=== PATIENT | male | born 1950 | race Caucasian/White ===

== ENCOUNTER 2025-09-02 17:11 | Inpatient (IN) | payer MEDICARE, OTHER, SELFPAY ==
--- NOTE | ~2025-09-02 | CT_ITS ---
EXAMINATION: CT brain wo dari, 09/02/2025 19:26 SPEECH THERAPY DIRECTOR HISTORY: AMS COMPARISON: No comparisons available. Technique: Axial images obtained of the brain without contrast. One or more of the following dose reduction techniques were used: automated exposure control, adjustment of the mA and/or kV according to patient size, use of iterative reconstruction technique. Findings: There are remote bilateral basal ganglia lacunar infarcts. No acute infarct or hemorrhage. Nonspecific deviation noted of the intraventricular septum towards the right, there is no midline shift however appreciated. No extra-axial fluid collections. Mastoid air cells unremarkable. Sinuses and orbits unremarkable. No acute fracture. No significant facial or scalp soft tissue swelling evident. No radiopaque foreign body is seen. Impression: 1.No acute intracranial abnormality. Reviewed, dictated and finalized at location P. CH THERAPY DIRECTOR Impression: 1.No acute intracranial abnormality.
--- NOTE | ~2025-09-02 | CT_ITS ---
EXAMINATION: CTA BRAIN/CAROTID DATE: 09/04/2025 09:34 INDICATION: Altered mental status TECHNIQUE: Computed tomographic angiography (CTA) of the head and neck was performed with 100 mL Omnipaque-350 intravenous contrast. Multiplanar reconstructions and maximum intensity projection 3D-reconstructions of the carotid arteries and of the intracranial arteries were created by the technologist on a separate workstation. Precontrast CT of the head was also obtained. Automated exposure control and iterative reconstruction technique were employed.The dose-length product was 1883.27 mGy-cm. COMPARISON: Head CT dated 09/02/2025 FINDINGS: Head: Old lacunar infarcts at the right thalamus and the bilateral basal ganglia. No acute intracranial hemorrhage, acute infarction or abnormal extra axial fluid collection. There is additional mild to moderate scattered white matter hypoattenuation consistent with chronic small vessel ischemic disease. There is asymmetric mild enlargement of the left lateral ventricle with no change in 9 mm left to right midline shift at the ventricular septum. No abnormal masses or obstructing lesions identified in the region of the foramen of [place]. There is however symmetric prominence of the sulci likely related to age-appropriate diffuse cerebral volume loss. No mass/mass effect. No abnormally enhancing lesions on the postcontrast imaging. Mucosal thickening in the inferior right maxillary sinus. The orbits and mastoid air cells are normal. Intracranial arteries Left vertebral artery is dominant. There is a mild, <50% stenosis of the proximal basilar artery. There is also small amount of atherosclerotic plaque without hemodynamically significant stenosis at the bilateral carotid siphons. Both A1 and P1 segments are patent. There is a moderate, 60-70 % stenosis of the left P1 segment. There is no other hemodynamically significant stenosis in the vertebral, basilar and internal carotid arteries. There are no aneurysms identified. Cerebral arterial arborization appears symmetric. Carotid arteries: The aortic arch and the great vessels arising from the arch are otherwise unremarkable with ectatic ascending thoracic aorta measuring up to 4.2 cm. no dissection or hemodynamically significant stenosis. There is small amount of atherosclerotic plaque with 0% stenosis of the right and left carotid bulbs relative to normal distal artery lumen diameter (NASCET criteria). The left vertebral artery is dominant with diminutive right vertebral artery beginning at its origin. Small right pleural effusion. Mild emphysema with groundglass opacities in the visualized upper lungs most likely due to expiratory phase of imaging and atelectasis with differential including likely mild pulmonary edema or pneumonia..Mild cervical and upper thoracic spondylosis. IMPRESSION: 1. Small amount of atherosclerotic plaque with 0% stenosis of the right and left carotid bulb relative to normal distal artery lumen diameter (NASCET criteria). 2. Moderate 60-70% stenosis at the left P1 segment. No other hemodynamically significant stenosis, thrombosis or aneurysm. 3. 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 4. Unchanged mild asymmetric enlargement of the left lateral ventricle resulting in a 9 mm midline shift at the ventricular septum. There is however no asymmetric effacement of the left-sided sulci or evident obstructing lesion in the region of the foramen of [place] to suggest hydronephrosis. Correlation with any prior outside imaging would be helpful to establish chronicity. No other acute intracranial process. 5. Age-related changes including mild diffuse volume loss and mild to moderate scattered white matter hypoattenuation consistent with chronic small vessel ischemic disease. 6. Mild emphysema with ground glass opacities in the visualized upper lungs most likely atelectasis due to expiratory phase of imaging with differential including less likely mild pulmonary edema or pneumonia. 7. Small right pleural effusion. 8. 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 Reviewed, dictated and finalized at location A. FING CONSULTANT IMPRESSION: 1. Small amount of atherosclerotic plaque with 0% stenosis of the right and lef t carotid bulb relative to normal distal artery lumen diameter (NASCET criteria ). 2. Moderate 60-70% stenosis at the left P1 segment. No other hemodynamically si gnificant stenosis, thrombosis or aneurysm. 3. Small old lacunar infarcts at the right thalamus and bilateral basal ganglia . 4. Unchanged mild asymmetric enlargement of the left lateral ventricle resultin g in a 9 mm midline shift at the ventricular septum. There is however no asymme tric effacement of the left-sided sulci or evident obstructing lesion in the re gion of the foramen of [place] to suggest hydronephrosis. Correlation with any p rior outside imaging would be helpful to establish chronicity. No other acute i ntracranial process. 5. Age-related changes including mild diffuse volume loss and mild to moderate scattered white matter hypoattenuation consistent with chronic small vessel isc hemic disease. 6. Mild emphysema with ground glass opacities in the visualized upper lungs mos t likely atelectasis due to expiratory phase of imaging with differential inclu ding less likely mild pulmonary edema or pneumonia. 7. Small right pleural effusion. 8. 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
--- NOTE | ~2025-09-02 | CT_ITS ---
EXAMINATION: CT chest abdomen pelvis w con DATE: 09/02/2025 20:09 INDICATION: Pneumonia. Altered mental status. TECHNIQUE: Computed tomography (CT) of the chest, abdomen, and pelvis was performed with 100 mL Omnipaque 350 intravenous contrast. Automated exposure control and iterative reconstruction technique were employed. The dose-length product was 1783.59 mGy-cm. COMPARISON: None FINDINGS: CHEST CT: There is a small right pleural effusion with pleural thickening. There is mild atelectasis in the lungs including peripheral rounded atelectasis in right middle lobe and right lower lobe. Calcified right lung nodules and calcified right hilar and mediastinal lymph nodes are consistent with old granulomatous disease. The heart size is normal. No pericardial effusion. There is a left chest wall pacer with leads in the right atrium and right ventricle. There are bridging endplate osteophytes at multiple levels in the spine, consistent with diffuse idiopathic skeletal hyperostosis (DISH). ABDOMEN/PELVIS CT: The liver is normal. Calcifications in the spleen are consistent with old granulomatous disease. There are changes of cholecystectomy. The pancreas and adrenal glands are normal. There is cortical thinning in the kidneys. There are cysts in the kidneys measuring up to 8.1 cm on the right. There are 4 stones in right kidney measuring up to 7 mm. There is a 2 mm stone in left kidney. There are bilateral inguinal hernias containing fat. The prostate is mildly enlarged. There is diverticulosis of the colon without evidence of diverticulitis. The appendix is normal. There are no dilated loops of bowel. There are penetrating atherosclerotic ulcers of infrarenal aorta. There is mild lumbar spondylosis. IMPRESSION: 1. Small right pleural effusion with pleural thickening, likely an exudate. 2. Peripheral airspace opacities in right middle lobe and right lower lobe, consistent with rounded atelectasis. 3. Bilateral inguinal hernias containing fat. Reviewed, dictated and finalized at location E. MACHINE OPERATOR IMPRESSION: 1. Small right pleural effusion with pleural thickening, likely an exudate. 2. Peripheral airspace opacities in right middle lobe and right lower lobe, con sistent with rounded atelectasis. 3. Bilateral inguinal hernias containing fat.
--- NOTE | ~2025-09-02 | XR_ITS ---
EXAMINATION: XR chest 1V, 09/02/2025 19:35 AUTOMATIC PAINT SPRAYER OPERATOR HISTORY: AMS COMPARISON: No comparisons available. Technique: Single view. Findings: Mild pulmonary venous congestion. Small right basilar infiltrate and effusion. No pneumothorax. Mild cardiomegaly. Mediastinal and hilar contours are within normal limits. Bony thorax no acute abnormality. Left pacemaker. Impression: CHF. Superimposed probable right lower lobe pneumonia Reviewed, dictated and finalized at location P. MATIC PAINT SPRAYER OPERATOR Impression: CHF. Superimposed probable right lower lobe pneumonia
[2025-09-02 17:08] VITALS: BP 193/93; PULSE 88; RESP 16; TEMP 36.5; O2SAT 96
--- NOTE | 2025-09-02 17:18 | ECG_ITS ---
Test Date: 2025-09-02 17:27:07 Measurements Intervals [place] Rate: 86 P: 39 KS: 206 QRS: 27 QRSD: 109 T: 78 QT: 371 QTc: 445 Interpretive Statements SINUS RHYTHM INFERIOR MYOCARDIAL INFARCTION , PROBABLY OLD Electronically Signed On 09-03-2025 09:56:13 PRINTING SERVICES COORDINATOR by Usama Bear D.O
[2025-09-02 17:19] VITALS: PULSE 89; O2SAT 95
[2025-09-02 17:40] LABS: Hematocrit 47.0 % (42.0-52.0); Hemoglobin 15.7 g/dL (14.0-18.0); Immature Granulocyte Percent A 0.5 % (0-0.5); Lymphocytes Absolute Auto 1.81 K/mm3 (0.9-3.2); Mean Corpuscular HGB Conc 33.4 g/dl (32-36); Mean Corpuscular Hemoglobin 28.5 pg (26-34); Mean Corpuscular Volume 85.5 fl (80-100); Nucleated Red Blood Cells Absolute Auto 0.000 K/mm3 (0.0-0.012); Nucleated Red Blood Cells Perc 0.0 % (0.0-0.2); Platelet Count Result 241 k/mm3 (150-375); Red Blood Count 5.50 M/mm3 (4.6-6.20); White Blood Count 12.8 K/mm3 (4.5-10.0)
[2025-09-02 17:45] LABS: Alanine Aminotransferase 17 U/L (6-50); Albumin Level 3.9 g/dL (3.5-5.1); Alkaline Phosphatase 122 U/L (38-126); Anion Gap 10 mmol/L (4-12); Aspartate Amino Transferase 26 U/L (17-59); Bilirubin,Total 0.8 mg/dL (0.2-1.3); Blood Urea Nitrogen 19 mg/dL (9-20); Calcium 8.8 mg/dL (8.4-10.2); Carbon Dioxide 23 mmol/L (22-30); Chloride 106 mmol/L (98-107); Estimated CRCL calculation 59 ml/min; Estimated Glomerular Filt Rate 56; Glucose 133 mg/dL (65-110); Potassium 3.2 mmol/L (3.4-5.0); Sodium 139 mmol/L (137-145); Total Protein 7.5 g/dL (6.3-8.2)
[2025-09-02 18:10] LABS: INR 1.1; Prothrombin Time 14.3 Seconds (11.1-14.7)
[2025-09-02 18:12] LABS: Partial Thromboplastin Time 28.4 Seconds (22.3-36.8)
[2025-09-02 18:35] VITALS: BP 176/98; PULSE 79; RESP 13; O2SAT 96
[2025-09-02 19:05] LABS: Add Urine Microscopic? YES; Appearance Urine Clear (Clear); Glucose Urine UA Negative (Negative); Leukocyte Esterase Ur Negative LEU/UL (Negative); Need Manual Microscopic Reviewed; Nitrate Urine Negative (Negative); Specific Grav Ur 1.025 (1.001-1.035)
[2025-09-02 19:26] LABS: Lipase 24 U/L (23-300); Magnesium 1.9 mg/dL (1.6-2.3)
[2025-09-02 19:29] LABS: Acetaminophen < 10 ug/mL (10-30); Salicylate < 1.0 mg/dL (2-20)
[2025-09-02 19:35] LABS: NT Pro B Type Natriuretic Pept 4400 pg/mL (19.9-100)
[2025-09-02] MEDS: SODIUM CHLORIDE 0.9% IV 1,000 ML 999 ML IV CONT (19:43)
[2025-09-02 19:50] LABS: Fractional Inspired Oxygen 21 %; HCO3 VBG 27.9 mEq/l (24.0-30.0); PCO2 VBG 40.3 mmHg (42.0-48.0); PO2 VBG 33.3 mmHg (35.0-45.0)
[2025-09-02 19:52] LABS: pH VBG 7.458 (7.300-7.400)
[2025-09-02 19:59] LABS: Thyroid Stimulating Hormone Reflex 0.543 uIU/mL (0.465-4.68)
[2025-09-02 20:19] LABS: Cannabinoid Screen Urine Negative (Negative)
[2025-09-02 20:33] LABS: Influenza A QL RT-PCR Negative (Negative); Influenza B QL RT-PCR Negative (Negative); RSV RNA, RT-PCR Negative (Negative); SARS-CoV-2 RNA PCR Negative (Negative)
--- NOTE | 2025-09-02 20:33 | ED_ITS ---
HPI - General Adult General Chief complaint: Altered Mental Status Stated complaint: Altered Mental Status Time Seen by Provider: 09/02/25 18:41 History of Present Illness HPI narrative: This is a 75-year-old male presenting ED for altered mental status. Patient was found wandering around the parking lot of a [employer]. The ambulance was called he was brought to the hospital for evaluation. At this time patient is A&O times 1-2 and does not know the year. He does not know what he was doing in the [facility] parking lot. He is denying any complaints such as fevers chills chest pain difficulty breathing abdominal pain nausea vomiting diarrhea or lower extremity edema. He denies use of drugs or alcohol. [facility] We attempted to reach family but could not find anyone. Reached out to the [facility] and it appears that it had an admission there for similar complaints several weeks ago. Related Data Allergies Allergy/AdvReac Type Severity Reaction Status Date / Time diazepam Allergy Mild Unknown Verified 09/02/25 20:09 lisinopril Allergy Mild Cough Verified 09/02/25 20:09 metoprolol Allergy Mild Unknown Verified 09/02/25 20:09 simvastatin Allergy Mild Unknown Verified 09/02/25 20:09 sulfamethoxazole (From Allergy Mild Unknown Verified 09/02/25 20:09 Bactrim) trimethoprim (From Bactrim) Allergy Mild Unknown Verified 09/02/25 20:09 NSAIDS (Non-Steroidal Allergy Unknown Verified 09/02/25 20:09 Anti-Inflamma PMFSH Past Medical History Medical History Coronary artery disease Abdominal aortic aneurysm Diabetes Afib Dementia Depression Hypertension Exam 2 Narrative: APPEARANCE: No apparent distress. Disheveled, smells of urine, A&O times 1-2 Head: atraumatic. EYES: EOMI, NOSE: Atraumatic NECK: Trachea midline RESPIRATORY: No increased rate of breathing, no oxygen requirements is bibasilar crackles CARDIOVASCULAR: RRR, mild +1 edema lower extremities ABDOMINAL: Non-distended, soft nontender MUSCULOSKELETAl: No obvious deformities NEURO: Alert. Moving 4/4 extremities SKIN:: Warm, dry. Normal color PSYCHIATRIC: Normal affect Course Vital Signs Vital signs: Vital Signs Temperature 97.7 F 09/02/25 17:08 Pulse Rate 88 09/02/25 17:08 Respiratory Rate 16 11/15/25 17:08 Blood Pressure 193/93 H 09/02/25 17:08 Pulse Oximetry 96 09/02/25 17:08 Oxygen Delivery Room Air 09/02/25 17:08 Temperature 97.7 F 09/02/25 17:08 Pulse Rate 79 09/02/25 18:35 Respiratory Rate 13 09/02/25 18:35 Blood Pressure 176/98 H 09/02/25 18:35 Pulse Oximetry 96 09/02/25 18:35 Oxygen Delivery Room Air 09/02/25 17:19 Medical Decision Making MDM Narrative Medical decision making narrative: -Course: 75-year-old male presenting ED for altered mental status. On arrival patient is disheveled, smells of urine is A&O x1.Patient cannot provide me any relevant information to guide a workup. We reached out to family and were not able to get any information. We reached out to [facility] and they sent us his recent admission which was several weeks ago for a similar presentation for confusion. CT brain C-spine chest abdomen pelvis and laboratory workup has been ordered. Patient given 1 L fluids. Labs and imaging reviewed. Significant findings include: CT brain and C-spine negative for acute findings. CT chest abdomen pelvis as interpretted by stat rad: in the right lung there is a small right pleural effusion with questionable minimal thickening of the pleura raising suspicion for possible early empyema. No loculations noted. Masslike consolidation right middle lobe mild swelling and adjacent vessels could represent round atelectasis versus infiltrates. There is also a consolidation right lower lobe with obliteration of the limited associated bronchitis which could represent pneumonia and/or aspiration. Or also filling defects in the bronchi which represent mucus plugs or aspiration. CT and pelvis did not reveal any causative findings. Lab work significant for a white count 12.8. BNP mildly elevated at 4400. Otherwise laboratory studies within normal limits. Urine drug screen, and alcohol negative. COVID and flu were negative. Kidney function at baseline. Patient has been started broad-spectrum antibiotics to cover pneumonia/ aspiration. [facility] was contacted for possible transfer They are at capacity and not accepting outside transfers at this time. Patient does not appear to be able to live safely his own and should definitely not be driving a car. Patient will be admitted hospital further management possible pneumonia and discharge planning. -DDX includes but is not limited to: sepsis pneumonia UTI drug use alcohol use dementia delirium Vital Signs Vital Signs: Vital Signs Temperature 97.7 F 09/02/25 17:08 Pulse Rate 88 09/02/25 17:08 Respiratory Rate 16 09/02/25 17:08 Blood Pressure 193/93 H 09/02/25 17:08 Pulse Oximetry 96 09/02/25 17:08 Oxygen Delivery Room Air 09/02/25 17:08 Temperature 97.7 F 09/02/25 17:08 Pulse Rate 79 09/02/25 18:35 Respiratory Rate 13 09/02/25 18:35 Blood Pressure 176/98 H 09/02/25 18:35 Pulse Oximetry 96 09/02/25 18:35 Oxygen Delivery Room Air 09/02/25 17:19 Lab Data 09/02/25 17:27 09/02/25 17:27 Labs: Lab Results 09/02/25 09/02/25 09/02/25 Range/Units 17:17 17:27 18:30 WBC 12.8 H (4.5-10.0) K/mm3 RBC 5.50 (4.6-6.20) M/mm3 Hgb 15.7 (14.0-18.0) g/dL Hct 47.0 (42.0-52.0) % MCV 85.5 (80-100) fl MCH 28.5 (26-34) pg MCHC 33.4 (32-36) g/dl RDW 13.9 (11.5-14.5) % Plt Count 241 (150-375) k/mm3 MPV 11.1 H (7.4-10.4) fl Immature Gran % (Auto) 0.5 (0-0.5) % Neut % (Auto) 77.8 H (45.5-73.1) % Lymph % (Auto) 14.2 L (18.3-44.2) % Grand % (Auto) 6.0 (2.6-8.5) % Eos % (Auto) 1.0 (0-4.4) % Baso % (Auto) 0.5 (0.2-1.2) % Lymph # (Auto) 1.81 (0.9-3.2) K/mm3 Grand # (Auto) 0.8 H (0.1-0.6) K/mm3 Eos # (Auto) 0.1 (0-0.3) K/mm3 Baso # (Auto) 0.1 (0.0-0.1) K/mm3 Abs Immat Gran (auto) 0.07 H (0.00-0.031) K/mm3 Absolute Neuts (auto) 9.9 H (1.3-6.7) K/mm3 Absolute Nucleated RBC 0.000 (0.0-0.012) K/mm3 Nucleated RBC % 0.0 (0.0-0.2) % PT 14.3 (11.1-14.7) Seconds INR 1.1 APTT 28.4 (22.3-36.8) Seconds Sodium 139 (137-145) mmol/L Potassium 3.2 L (3.4-5.0) mmol/L Chloride 106 (98-107) mmol/L Carbon Dioxide 23 (22-30) mmol/L Anion Gap 10 (4-12) mmol/L BUN 19 (9-20) mg/dL Creatinine 1.26 (0.7-1.3) mg/dL Estim Creat Clear Calc 59 ml/min Estimated GFR 56 L (59 - ) Glucose 133 H (65-110) mg/dL POC Capillary Glucose 142 H (65-105) mg/dl Lactic Acid (0.7-2.0) mmol/L Calcium 8.8 (8.4-10.2) mg/dL Magnesium 1.9 (1.6-2.3) mg/dL Total Bilirubin 0.8 (0.2-1.3) mg/dL AST 26 (17-59) U/L ALT 17 (6-50) U/L Alkaline Phosphatase 122 (38-126) U/L NT-Pro-B Natriuret Pep 4400 H (19.9-100) pg/mL Total Protein 7.5 (6.3-8.2) g/dL Albumin 3.9 (3.5-5.1) g/dL Lipase 24 (23-300) U/L TSH (Reflex) 0.543 (0.465-4.68) uIU/mL Urine Color Yellow (Yellow) Urine Appearance Clear (Clear) Urine pH 5.5 (5.0-9.0) Ur Specific [place] 1.025 (1.001-1.035) Urine Protein 3+ H (Negative) mg/dL Urine Glucose (UA) Negative (Negative) mg/dL Urine Ketones 2+ H (Negative) mg/dL Ur Blood (Man) Negative (Negative) Urine Nitrate Negative (Negative) Urine Bilirubin Negative (Negative) Urine Urobilinogen 1.0 (<2.0) mg/dL Add Ur Microanalysis Reviewed Leukocyte Esterase Rfl Negative (Negative) MARCIAL/UL Urine RBC 0-2 (0-2) /hpf Urine WBC 0-5 (0-3) /hpf Ur Squamous Epith Cells None seen (Few) /hpf Urine Bacteria None seen /hpf Urine Casts 6-10 Nasal MRSA (PCR) Salicylates < 1.0 L (2-20) mg/dL Urine Opiates Screen Negative (Negative) Urine Methadone Screen Negative (Negative) Acetaminophen < 10 L (10-30) ug/mL Ur Barbiturates Screen Negative (Negative) Ur Phencyclidine Scrn Negative (Negative) Ur Amphetamine Screen Negative (Negative) U Benzodiazepines Scrn Negative (Negative) Urine Cocaine Screen Negative (Negative) U Cannabinoids Screen Negative (Negative) Ethyl Alcohol < 10 (<10) mg/dL Influenza A (RT-PCR) (Negative) Influenza B (RT-PCR) (Negative) RSV (RT-PCR) (Negative) SARS-CoV-2 RNA (RT-PCR) (Negative) 09/02/25 09/02/25 09/02/25 Range/Units 19:52 19:54 23:23 WBC (4.5-10.0) K/mm3 RBC (4.6-6.20) M/mm3 Hgb (14.0-18.0) g/dL Hct (42.0-52.0) % MCV (80-100) fl MCH (26-34) pg MCHC (32-36) g/dl RDW (11.5-14.5) % Plt Count (150-375) k/mm3 MPV (7.4-10.4) fl Immature Gran % (Auto) (0-0.5) % Neut % (Auto) (45.5-73.1) % Lymph % (Auto) (18.3-44.2) % Grand % (Auto) (2.6-8.5) % Eos % (Auto) (0-4.4) % Baso % (Auto) (0.2-1.2) % Lymph # (Auto) (0.9-3.2) K/mm3 Grand # (Auto) (0.1-0.6) K/mm3 Eos # (Auto) (0-0.3) K/mm3 Baso # (Auto) (0.0-0.1) K/mm3 Abs Immat Gran (auto) (0.00-0.031) K/mm3 Absolute Neuts (auto) (1.3-6.7) K/mm3 Absolute Nucleated RBC (0.0-0.012) K/mm3 Nucleated RBC % (0.0-0.2) % PT (11.1-14.7) Seconds INR APTT (22.3-36.8) Seconds Sodium (137-145) mmol/L Potassium (3.4-5.0) mmol/L Chloride (98-107) mmol/L Carbon Dioxide (22-30) mmol/L Anion Gap (4-12) mmol/L BUN (9-20) mg/dL Creatinine (0.7-1.3) mg/dL Estim Creat Clear Calc ml/min Estimated GFR (59 - ) Glucose (65-110) mg/dL POC Capillary Glucose (65-105) mg/dl Lactic Acid 1.3 (0.7-2.0) mmol/L Calcium (8.4-10.2) mg/dL Magnesium (1.6-2.3) mg/dL Total Bilirubin (0.2-1.3) mg/dL AST (17-59) U/L ALT (6-50) U/L Alkaline Phosphatase (38-126) U/L NT-Pro-B Natriuret Pep (19.9-100) pg/mL Total Protein (6.3-8.2) g/dL Albumin (3.5-5.1) g/dL Lipase (23-300) U/L TSH (Reflex) (0.465-4.68) uIU/mL Urine Color (Yellow) Urine Appearance (Clear) Urine pH (5.0-9.0) Ur Specific [place] (1.001-1.035) Urine Protein (Negative) mg/dL Urine Glucose (UA) (Negative) mg/dL Urine Ketones (Negative) mg/dL Ur Blood (Man) (Negative) Urine Nitrate (Negative) Urine Bilirubin (Negative) Urine Urobilinogen (<2.0) mg/dL Add Ur Microanalysis Leukocyte Esterase Rfl (Negative) MARCIAL/UL Urine RBC (0-2) /hpf Urine WBC (0-3) /hpf Ur Squamous Epith Cells (Few) /hpf Urine Bacteria /hpf Urine Casts Nasal MRSA (PCR) Pending Salicylates (2-20) mg/dL Urine Opiates Screen (Negative) Urine Methadone Screen (Negative) Acetaminophen (10-30) ug/mL Ur Barbiturates Screen (Negative) Ur Phencyclidine Scrn (Negative) Ur Amphetamine Screen (Negative) U Benzodiazepines Scrn (Negative) Urine Cocaine Screen (Negative) U Cannabinoids Screen (Negative) Ethyl Alcohol (<10) mg/dL Influenza A (RT-PCR) Negative (Negative) Influenza B (RT-PCR) Negative (Negative) RSV (RT-PCR) Negative (Negative) SARS-CoV-2 RNA (RT-PCR) Negative (Negative) ABG Data ABG results: 09/02/25 19:46 VBG pH 7.458 H* VBG pCO2 40.3 L VBG pO2 33.3 L VBG HCO3 27.9 O2 Delivery Device Room air O2 Liters/Min Not Reportable FiO2 21 Discharge Plan Discharge Clinical Impression: Pneumonia, Pleural effusion, Dementia Patient Disposition: Still a Patient Condition: Stable Patient Language: Urdu Follow-up/Referrals: PHYSICIAN,CIVIL CADD TECHNICIAN [Primary Care Provider, Internal Medicine]
[2025-09-03] VITALS (19 sets, daily range): BP systolic 134–270; BP diastolic 51–110; PULSE 60–75; RESP 17–20; TEMP 36.4–36.8; O2SAT 94–100
[2025-09-03] MEDS: cefTRIAXone 2 GM in SODIUM CHLORIDE 0.9% IV 100 ML 200 ML IVPB
[2025-09-03 00:37] LABS: MRSA (PCR) NOT DETECTED (NOT DETECTE)
--- NOTE | 2025-09-03 00:56 | WPCEDHO ---
ED Hand Off Checklist All vitals saved:yes IV Site documented: yes All med administrations documented:yes Triage Note Triage Note Pt to ED from [facility] parking lot via 09/02/25 17:08 [facility] for [facility]. Pt was allegedly pulled over by PD who noticed pt appeared to be altered upon talking with him. Per EMS reports PD called pt family who report pt to be confused at baseline. On arrival pt A&Ox2. Pt has hx HTN Allergies diazepam Allergy (Mild, Verified 09/02/25 20:09) Unknown lisinopril Allergy (Mild, Verified 09/02/25 20:09) Cough metoprolol Allergy (Mild, Verified 09/02/25 20:09) Unknown simvastatin Allergy (Mild, Verified 09/02/25 20:09) Unknown sulfamethoxazole (From Bactrim) Allergy (Mild, Verified 09/02/25 20:09) Unknown trimethoprim (From Bactrim) Allergy (Mild, Verified 09/02/25 20:09) Unknown NSAIDS (Non-Steroidal Anti-Inflamma Allergy (Verified 09/02/25 20:09) Unknown Administered/Completed Medications Discontinued Medications Sodium Chloride (Normal Saline Iv) 1,000 mls @ 999 mls/hr IV CONT .Q1H1M STA Stop: 09/02/25 20:10 Last Infusion: 09/02/25 20:39 Dose: Infused Documented By: Admin: 09/02/25 19:43 Dose: 999 mls/hr Documented By: DRISS Ceftriaxone Sodium 2 gm/ (Sodium Chloride) 100 mls @ 200 mls/hr IVPB ONCE STA Stop: 09/02/25 23:20 Last Infusion: 09/03/25 00:55 Dose: Infused Documented By: Admin: 09/03/25 00:00 Dose: 200 mls/hr Documented By: DRISS Interventions/Assessments Cardiac Monitoring Start: 09/02/25 17:04 Freq: Status: Active Protocol: Document 09/02/25 17:19 LUIS FERNANDO (Rec: 09/02/25 17:20 LUIS FERNANDO [id number]) Apiculturist Assessment Apiculturist Yes Applied Pulse Rate (60-100) 89 EKG Rythm Sinus Rhythm IV / Saline Lock, Insert Start: 09/02/25 17:18 Freq: STAT Status: Active Protocol: Document 09/02/25 17:19 KED (Rec: 09/02/25 17:20 KED [id number]) IV Assessment Peripheral Access Left Hand IV Catheter Access Initiated IV Insertion Date 09/02/25 IV Insertion Time 17:19 Catheter Gauge 20 IV Insertion 1 Attempts Ultrasound Used for No Placement IV Site Assessment WNL IV Care and WNL Maintenance PA: Cardiovascular Assessment Start: 09/02/25 17:04 Freq: Status: Active Protocol: Document 09/02/25 17:19 KED (Rec: 09/02/25 17:20 KED [id number]) Cardiovascular Assessment Cardiovascular None Symptoms PA: Neurological Assessment Start: 09/02/25 17:04 Freq: Status: Active Protocol: Document 09/02/25 17:19 KED (Rec: 09/02/25 17:20 KED [id number]) Neurological Assessment Level of Awake Consciousness Arousable to Verbal Orientation Oriented to Person,Oriented to Place Neurological Confusion Symptoms Behavior Appropriate,Cooperative Additional Pt able to say he is in a hospital, unable to states Neurological which one he is at Comments [place] Coma Scale Eyes Open Verbal Disoriented Motor Follows Commands Ciaran Coma Total 14 Score PA: Respiratory Assessment Start: 09/02/25 17:04 Freq: Status: Active Protocol: Document 09/02/25 17:19 KED (Rec: 09/02/25 17:20 KED [id number]) Respiratory Assessment Symptoms None Effort Normal Pattern Regular Depth Normal Chest Expansion Symmetrical Adult Capillary Normal/Less than 2 Seconds Refill Oxygen Delivery Oxygen Delivery Room Air Pulse Oximetry (90- 95 100) Last Vital Signs Temperature 97.7 F 09/02/25 17:08 Pulse Rate 64 09/02/25 23:48 Respiratory Rate 16 09/02/25 23:48 Pulse Oximetry 95 09/02/25 23:48 Blood Pressure 158/72 H 09/02/25 23:48 Blood Pressure Mean 100 09/02/25 23:48 Oxygen Delivery Room Air 09/02/25 17:19 Weight 113.6 kg 09/02/25 17:08 Last Result - Abnormals Only WBC 12.8 K/mm3 (4.5-10.0) H 09/02/25 17:27 MPV 11.1 fl (7.4-10.4) H 09/02/25 17:27 Neut % (Auto) 77.8 % (45.5-73.1) H 09/02/25 17:27 Lymph % (Auto) 14.2 % (18.3-44.2) L 09/02/25 17: [place] # (Auto) 0.8 K/mm3 (0.1-0.6) H 09/02/25 17: Abs Immat Gran (auto) 0.07 K/mm3 (0.00-0.031) H 09/02/25 17: Absolute Neuts (auto) 9.9 K/mm3 (1.3-6.7) H 09/02/25 17:27 VBG pH 7.458 (7.300-7.400) H* 09/02/25 19:46 VBG pCO2 40.3 mmHg (42.0-48.0) L 09/02/25 19:46 VBG pO2 33.3 mmHg (35.0-45.0) L 09/02/25 19:46 Potassium 3.2 mmol/L (3.4-5.0) L 09/02/25 17: Estimated GFR 56 (59-) L 09/02/25 17:27 Glucose 133 mg/dL (65-110) H 09/02/25 17:27 POC Capillary Glucose 142 mg/dl (65-105) H 09/02/25 17:17 NT-Pro-B Natriuret Pep 4400 pg/mL (19.9-100) H 09/02/25 17:27 Urine Protein 3+ mg/dL (Negative) H 09/02/25 18:30 Urine Ketones 2+ mg/dL (Negative) H 09/02/25 18:30 Salicylates < 1.0 mg/dL (2-20) L 09/02/25 17: Acetaminophen < 10 ug/mL (10-30) L 09/02/25 17:27
--- NOTE | 2025-09-03 01:12 | P.HP_ITS ---
H&P: HPI History of Present Illness Date/Time: 09/03/25 01:12 Chief Complaint: Altered mental status Narrative: 75-year-old male presenting to [facility] ER via EMS on 09/02/2025 found to be wandering, altered mental status. History is taken via the ER physician in chart review from the [place]. documentation reports PMH CAD, BPH, awaiting hell seeing improvement, diabetes mellitus, hyperlipidemia, bradycardia, onychomycosis, history of transluminal coronary angioplasty, permanent cardiac pacemaker, morbid obesity, history of polyp of colon, nephrolithiasis, cholelithiasis and cholecystitis without obstruction, dyspepsia, vitamin-D deficiency, low back pain, memory loss, depression, dementia, sinusitis, insomnia, anger, pneumonia, paroxysmal atrial fibrillation, UTI, aneurysm of thoracic aorta, Dupuytren's contracture of fingers. Patient's address on his identification card correlates with an apartment. He was apparently found wandering in the parking lot of [facility], reportedly has a car. EMS brought the patient [facility]. He was confused but we cannot elicit any complaints on comprehensive review of systems. Exhaustive attempts to reach out to family unsuccessful, [facility] because [facility] are at capacity. A recent admission 2 weeks prior reports confusion, borderline low blood pressure, hypokalemia, chronic right pleural effusion. At that time is EKG demonstrated sinus rhythm with occasional PACs, right bundle branch block, no acute ST elevation, QTC 497. A CT head was without any acute abnormalities, demonstrated volume loss and extensive chronic white small-vessel disease. Chest x-ray demonstrating right pleural effusion. Potassium 3.0. WBC slightly elevated at 11,300 thousand three hundred, he received hydralazine IV push for elevated blood pressure and afterwards had blood pressure 108/54. On this occasion is WBC is 12.8, platelet 241, hemoglobin 15.7, VBG demonstrating pH 7.458, pCO2 40.3, serum creatinine 1.26, potassium 3.2, BNP 4400, urinalysis 2+ ketones and 3+ protein. MRSA in the nares negative, urine drug screen negative, serum alcohol undetectable, quad viral screen negative. CT brain without contrast, no acute abnormalities. C-spine to negative for acute findings. CT chest abdomen pelvis with Stat Rad read revealing right lung small pleural effusion with questionable a minimal thickening of the pleural, no loculations, masslike consolidation right middle lobe with mild swelling and adjacent vessels could represent round atelectasis versus infiltrates, right lower lobe consolidation with obliteration, possible mucus plugs? Administered hydralazine 5 mg IV x1, doxycycline, ceftriaxone 2 g IV x1, 1 L sodium chloride bolus. Review of Systems Review of Systems: All systems reviewed & are unremarkable except as noted in HPI and below (Subjective) [facility] Past Medical History Medical History Coronary artery disease Abdominal aortic aneurysm Diabetes Afib Dementia Depression Hypertension Meds Home Medications and Allergies Allergies Allergy/AdvReac Type Severity Reaction Status Date / Time diazepam Allergy Mild Unknown Verified 09/02/25 20:09 lisinopril Allergy Mild Cough Verified 09/02/25 20:09 metoprolol Allergy Mild Unknown Verified 09/02/25 20:09 simvastatin Allergy Mild Unknown Verified 09/02/25 20:09 sulfamethoxazole (From Allergy Mild Unknown Verified 09/02/25 20:09 Bactrim) trimethoprim (From Bactrim) Allergy Mild Unknown Verified 09/02/25 20:09 NSAIDS (Non-Steroidal Allergy Unknown Verified 09/02/25 20:09 Anti-Inflamma Vital Signs Vital Signs - 24 hr 09/02/25 17:08 09/02/25 17:19 09/02/25 17:19 Temperature 97.7 F Pulse Rate 88 89 Respiratory Rate 16 Blood Pressure 193/93 H Pulse Oximetry 96 95 Oxygen Delivery Room Air Room Air 09/02/25 18:35 09/03/25 01:09 Temperature Pulse Rate 79 73 Respiratory Rate 13 20 Blood Pressure 176/98 H 149/59 H Pulse Oximetry 96 94 Oxygen Delivery Exam Const: General: comfortable Other: Pleasantly confused HENMT: Other: Extremely poor dentition, teeth covered in plaque, severe halitosis Eyes: Pupils: Equal, round and reactive pupils present EOM: EOMs intact bilaterally Neck: Neck: supple Resp: Effort & Inspection: normal respiratory effort Auscultation: clear to auscultation bilaterally Cardio: Rate: regular rate Rhythm: regular rhythm Heart sounds: no murmurs GI: Inspection: non-distended GI Palp: Yes Soft to palpation Auscultation: normal bowel sounds : General: Yes bladder normal to palpation Neuro: Motor exam (neuro): 5/5 motor strength present throughout Other: Does not fully participate with neurologic exam. Extrem: General: no edema H&P: Results Labs Labs: Short CBC 09/02/25 Range/Units 17:27 WBC 12.8 H (4.5-10.0) K/mm3 Hgb 15.7 (14.0-18.0) g/dL Hct 47.0 (42.0-52.0) % Plt Count 241 (150-375) k/mm3 BMP 09/02/25 17:27 Sodium 139 Potassium 3.2 L Chloride 106 Carbon Dioxide 23 BUN 19 Creatinine 1.26 Glucose 133 H Calcium 8.8 Liver Function 09/02/25 Range/Units 17:27 Total Bilirubin 0.8 (0.2-1.3) mg/dL AST 26 (17-59) U/L ALT 17 (6-50) U/L Alkaline Phosphatase 122 (38-126) U/L Albumin 3.9 (3.5-5.1) g/dL Urine 09/02/25 Range/Units 18:30 Urine Color Yellow (Yellow) Urine Appearance Clear (Clear) Urine pH 5.5 (5.0-9.0) Ur Specific [place] 1.025 (1.001-1.035) Urine Protein 3+ H (Negative) mg/dL Urine Glucose (UA) Negative (Negative) mg/dL Assessment and Plan Assessment and plan (1) Dementia: Code(s): F03.90 - Unspecified dementia, unspecified severity, without behavioral disturbance, psychotic disturbance, mood disturbance, and anxiety Status: Acute (2) Pneumonia: Code(s): J18.9 - Pneumonia, unspecified organism Status: Acute (3) Pleural effusion: Code(s): J90 - Pleural effusion, not elsewhere classified Status: Acute (4) Hypokalemia: Code(s): E87.6 - Hypokalemia Status: Acute Plan Patient presents altered, unclear if this is his baseline or his dementia is pro gressing or there is a compounding etiology. Consult Neurology. Will treat for right lower lobe right middle lobe pneumonia however some of the findings appear to be chronic. Final radiology interpretation is pending. Continue ceftriaxone and doxycycline, vancomycin. Trend leukocytosis. Blood cultures pending. Monitor blood pressure, treat cautiously. History of diabetes: Hold home insulin, Accu-Cheks q.6 hours with low-dose insulin sliding scale on hypoglycemia protocol. Paroxysmal atrial fibrillation on Eliquis with history of bradycardia: Resume Eliquis in the a.m. if passing swallow evaluation. Continue telemetry. History of CAD status post coronary angioplasty: Restart medications when taking p.o.. Replace potassium. Failure to thrive, nutrition consult, dietary supplements, PT/OT, care coordination consult. ----- Full code. Ambulate with assistance, fall precautions. SCDs. NPO. Speech therapy evaluation. Hospitalist MIPS Advance Care Plan I have confirmed that the patient's Advanced Care Plan is present, code status is documented, or surrogate decision maker is listed in patient medical record.: Yes Medication Reconciliation I have utilized all available resources to obtain, update and review the patients current medications (includes all prescriptions, OTC, herbals, cannabis, and nutritional supplements).: Yes
[2025-09-03] MEDS: KCL 20 MEQ/SW 100 ML 100 ML 50 MEQ IVPB (02:03)
[2025-09-03] MEDS: DOXYCYCLINE IV 100 MG in SODIUM CHLORIDE 0.9% IV 100 ML IVPB ×2 (02:03→14:11)
--- NOTE | 2025-09-03 02:13 | PC.NURSE ---
Pt arrived to floor with BP 270/110 (manual), IV removed and soiled with urine. Dr. Lipscomb notifed of critical HTN, one time additional hydralazine ordered. Bilateral arm IVs placed and STA antibiotics ordered in ED have now been started, antibiotics will be given much later than ordered as multiple bags are ordered over at least 1hr infusion times for each bag.
--- NOTE | 2025-09-03 02:33 | ADMGEN ---
This patient, Robel Winkler, was admitted to Medical Room 247-. Patient/family oriented to hospital policies and general routines including ID bracelet, bed and alarms, visiting hours, pain management, procedures, bathroom and other care routines, personal items, smoking policy, room service/diet, and visiting hours. Information on how to activate the Rapid Response Team has been discussed. Patient/Family are encouraged to report perceived risks to care and to ask questions if they do not understand what they are told or what they should do.
[2025-09-03] MEDS: VANCOMYCIN 1,250 MG/NS 250 ML 1,250 MG/250 ML BAG 166.67 MG IVPB ×2 (03:05→04:25)
[2025-09-03 05:45] LABS: Hematocrit 45.0 % (42.0-52.0); Hemoglobin 14.8 g/dL (14.0-18.0); Immature Granulocyte Percent A 0.4 % (0-0.5); Lymphocytes Absolute Auto 1.95 K/mm3 (0.9-3.2); Mean Corpuscular HGB Conc 32.9 g/dl (32-36); Mean Corpuscular Hemoglobin 28.5 pg (26-34); Mean Corpuscular Volume 86.5 fl (80-100); Nucleated Red Blood Cells Absolute Auto 0.000 K/mm3 (0.0-0.012); Nucleated Red Blood Cells Perc 0.0 % (0.0-0.2); Platelet Count Result 227 k/mm3 (150-375); Red Blood Count 5.20 M/mm3 (4.6-6.20); White Blood Count 10.8 K/mm3 (4.5-10.0)
[2025-09-03 06:28] LABS: Procalcitonin 0.0 ng/mL
[2025-09-03 06:29] LABS: Anion Gap 8 mmol/L (4-12); Blood Urea Nitrogen 15 mg/dL (9-20); Calcium 8.5 mg/dL (8.4-10.2); Carbon Dioxide 26 mmol/L (22-30); Chloride 104 mmol/L (98-107); Estimated CRCL calculation 76 ml/min; Estimated Glomerular Filt Rate > 60; Glucose 111 mg/dL (65-110); Magnesium 2.0 mg/dL (1.6-2.3); Potassium 3.2 mmol/L (3.4-5.0); Sodium 138 mmol/L (137-145)
--- NOTE | 2025-09-03 07:10 | P.PNIM_ITS ---
Progress Note: A&P Assessment and Plan (1) Dementia: Code(s): F03.90 - Unspecified dementia, unspecified severity, without behavioral disturbance, psychotic disturbance, mood disturbance, and anxiety Status: Acute Assessment and Plan: patient presented with altered mental status unclear if this is his baseline or his dementia is progressing or there is a compounding etiology s/p CT head Neurology consult (2) Pneumonia: Code(s): J18.9 - Pneumonia, unspecified organism Status: Acute Assessment and Plan: s/p CXR with RLL pneumonia MRSA swab negative d/c IV vancomycin continue IV ceftriaxone continue IV doxycycline AM labs (3) Pleural effusion: Code(s): J90 - Pleural effusion, not elsewhere classified Status: Acute Assessment and Plan: s/p CXR with small right pleural effusion on room air (4) Hypokalemia: Code(s): E87.6 - Hypokalemia Status: Acute Assessment and Plan: s/p replacement AM labs (5) DM type 2 (diabetes mellitus, type 2): Code(s): E11.9 - Type 2 diabetes mellitus without complications Status: Acute Assessment and Plan: accu checks avoid hypoglycemia SSI (6) Essential hypertension: Code(s): I10 - Essential (primary) hypertension Status: Acute Assessment and Plan: BP has been high since admission s/p PO clonidine and IV hydralazine BP was better this AM 160/90 add PRN hydralazine for SBP > 160 plan to restart home medications once patient passes swallow eval. (7) Paroxysmal A-fib: Code(s): I48.0 - Paroxysmal atrial fibrillation Status: Acute Assessment and Plan: also has a history of bradycardia telemetry restart home Eliquis once patient patient passes swallow eval. Subjective Date/time seen: 09/03/25 07:10 Interval history: Patient seen for a follow up visit. Patient lying in bed, in no acute distress. Patient denies acute pain. Patient is oriented to self and president. Patient stated it was 2019 and reported he lived that way 3 hours but unable to name the town he was in currently or the town that he lives in. Neurology consulted. Patient's blood pressure was high overnight and he was treated with PO clonidine and IV hydralazine. ST consulted for bedside swallow evaluation. Plan to restart home medications once able. PRN hydralazine IV order placed for SBP > 160. Patient's MRSA swab is negative, stop IV vancomycin. Continue IV ceftriaxone and IV doxycycline for pneumonia. Review of Systems Review of Systems: ROS unobtainable: Yes unobtainable due to mental status Objective Data Vital Signs Vital Signs: Vital Signs - 24 hr 09/02/25 17:08 09/02/25 17:19 09/02/25 17:19 Temperature 97.7 F Pulse Rate 88 89 Respiratory Rate 16 Blood Pressure 193/93 H Pulse Oximetry 96 95 Oxygen Delivery Room Air Room Air 09/02/25 18:35 09/03/25 01:09 09/03/25 01:38 Temperature Pulse Rate 79 73 Respiratory Rate 13 20 Blood Pressure 176/98 H 149/59 H Pulse Oximetry 96 94 Oxygen Delivery Room Air 09/03/25 01:54 09/03/25 01:55 09/03/25 03:21 Temperature 98.1 F Pulse Rate 74 Respiratory Rate 20 Blood Pressure 231/79 H 270/110 H 210/110 H Pulse Oximetry 96 Oxygen Delivery 09/03/25 04:00 09/03/25 04:30 09/03/25 05:54 Temperature Pulse Rate 73 Respiratory Rate Blood Pressure 240/110 H 160/90 H Pulse Oximetry Oxygen Delivery 09/03/25 06:00 Temperature 98.3 F Pulse Rate 75 Respiratory Rate 18 Blood Pressure Pulse Oximetry 97 Oxygen Delivery Intake/Output Intake/Output: Intake & Output 08/31/25 09/01/25 09/02/25 09/03/25 23:59 23:59 23:59 23:59 Intake Total 1000 450 Output Total 1180 Balance 1000 -730 Meds/Results Medications: Active Medications Generic Name Dose Route Start Last Admin Trade Name Freq PRN Reason Stop Dose Admin Dextrose 12.5 gm 09/03/25 01:38 Dextrose 50% 25 Gm/50 Ml Syringe IV PUSH PRN PRN Hypoglycemia Protocol Glucose 15 gm 09/03/25 01:38 Glucose Oral Gel 15 Gm Of Glucse In 37.5 Gm Tube PO PRN PRN Hypoglycemia Protocol Ceftriaxone Sodium 2 gm/ 100 mls @ 200 mls/hr 09/04/25 00:00 Sodium Chloride IVPB Q24H HANNAH Doxycycline Hyclate 100 mg/ 100 mls @ 100 mls/hr 09/03/25 14:00 Sodium Chloride IVPB 09/07/25 14:59 Q12H [facility] Dextrose 1,000 mls @ 100 mls/hr 09/03/25 01:38 Dextrose 5% 1,000 Ml IVPB PRN PRN Hypoglycemia Protocol Vancomycin HCl 1,500 mg in 500 mls @ 250 mls/hr 09/03/25 22:00 Vancomycin 1,500 Mg/Ns 500 Ml IVPB Q18H [facility] Insulin Aspart 2 - 5 units 09/03/25 08:00 Insulin Aspart (*Bkc) 100 Units/Ml SUB-Q TIDWM HANNAH Protocol Insulin Aspart 1 - 2 units 09/03/25 21:00 Insulin Aspart (*Bkc) 100 Units/Ml SUB-Q HS [facility] Protocol Radiology Results: ITS Impressions Head CT 09/02/25 19:36 Impression: 1.No acute intracranial abnormality. Chest X-Ray 09/02/25 19:44 Impression: CHF. Superimposed probable right lower lobe pneumonia Labs Labs: Laboratory Results - last 24 hr 09/02/25 09/02/25 09/02/25 17:17 17:27 18:30 WBC 12.8 H RBC 5.50 Hgb 15.7 Hct 47.0 MCV 85.5 MCH 28.5 MCHC 33.4 RDW 13.9 Plt Count 241 MPV 11.1 H Immature Gran % (Auto) 0.5 Neut % (Auto) 77.8 H Lymph % (Auto) 14.2 L [place] % (Auto) 6.0 Eos % (Auto) 1.0 Baso % (Auto) 0.5 Lymph # (Auto) 1.81 [place] # (Auto) 0.8 H Eos # (Auto) 0.1 Baso # (Auto) 0.1 Abs Immat Gran (auto) 0.07 H Absolute Neuts (auto) 9.9 H Absolute Nucleated RBC 0.000 Nucleated RBC % 0.0 PT 14.3 INR 1.1 APTT 28.4 VBG pH VBG pCO2 VBG pO2 VBG HCO3 O2 Delivery Device O2 Liters/Min FiO2 Sodium 139 Potassium 3.2 L Chloride 106 Carbon Dioxide 23 Anion Gap 10 BUN 19 Creatinine 1.26 Estim Creat Clear Calc 59 Estimated GFR 56 L Glucose 133 H POC Capillary Glucose 142 H Lactic Acid Calcium 8.8 Magnesium 1.9 Total Bilirubin 0.8 AST 26 ALT 17 Alkaline Phosphatase 122 NT-Pro-B Natriuret Pep 4400 H Total Protein 7.5 Albumin 3.9 Lipase 24 Procalcitonin TSH (Reflex) 0.543 Urine Color Yellow Urine Appearance Clear Urine pH 5.5 Ur Specific [place] 1.025 Urine Protein 3+ H Urine Glucose (UA) Negative Urine Ketones 2+ H Ur Blood (Man) Negative Urine Nitrate Negative Urine Bilirubin Negative Urine Urobilinogen 1.0 Add Ur Microanalysis Reviewed Leukocyte Esterase Rfl Negative Urine RBC 0-2 Urine WBC 0-5 Ur Squamous Epith Cells None seen Urine Bacteria None seen Urine Casts 6-10 Nasal MRSA (PCR) Salicylates < 1.0 L Urine Opiates Screen Negative Urine Methadone Screen Negative Acetaminophen < 10 L Ur Barbiturates Screen Negative Ur Phencyclidine Scrn Negative Ur Amphetamine Screen Negative U Benzodiazepines Scrn Negative Urine Cocaine Screen Negative U Cannabinoids Screen Negative Ethyl Alcohol < 10 Influenza A (RT-PCR) Influenza B (RT-PCR) RSV (RT-PCR) SARS-CoV-2 RNA (RT-PCR) 09/02/25 09/02/25 09/02/25 19:46 19:52 19:54 WBC RBC Hgb Hct MCV MCH MCHC RDW Plt Count MPV Immature Gran % (Auto) Neut % (Auto) Lymph % (Auto) [place] % (Auto) Eos % (Auto) Baso % (Auto) Lymph # (Auto) [place] # (Auto) Eos # (Auto) Baso # (Auto) Abs Immat Gran (auto) Absolute Neuts (auto) Absolute Nucleated RBC Nucleated RBC % PT INR APTT VBG pH 7.458 H* VBG pCO2 40.3 L VBG pO2 33.3 L VBG HCO3 27.9 O2 Delivery Device Room air O2 Liters/Min Not Reportable FiO2 21 Sodium Potassium Chloride Carbon Dioxide Anion Gap BUN Creatinine Estim Creat Clear Calc Estimated GFR Glucose POC Capillary Glucose Lactic Acid 1.3 Calcium Magnesium Total Bilirubin AST ALT Alkaline Phosphatase NT-Pro-B Natriuret Pep Total Protein Albumin Lipase Procalcitonin TSH (Reflex) Urine Color Urine Appearance Urine pH Ur Specific [place] Urine Protein Urine Glucose (UA) Urine Ketones Ur Blood (Man) Urine Nitrate Urine Bilirubin Urine Urobilinogen Add Ur Microanalysis Leukocyte Esterase Rfl Urine RBC Urine WBC Ur Squamous Epith Cells Urine Bacteria Urine Casts Nasal MRSA (PCR) Salicylates Urine Opiates Screen Urine Methadone Screen Acetaminophen Ur Barbiturates Screen Ur Phencyclidine Scrn Ur Amphetamine Screen U Benzodiazepines Scrn Urine Cocaine Screen U Cannabinoids Screen Ethyl Alcohol Influenza A (RT-PCR) Negative Influenza B (RT-PCR) Negative RSV (RT-PCR) Negative SARS-CoV-2 RNA (RT-PCR) Negative 09/02/25 09/03/25 09/03/25 23:23 05:13 06:46 WBC 10.8 H RBC 5.20 Hgb 14.8 Hct 45.0 MCV 86.5 MCH 28.5 MCHC 32.9 RDW 13.9 Plt Count 227 MPV 11.2 H Immature Gran % (Auto) 0.4 Neut % (Auto) 72.2 Lymph % (Auto) 18.0 L [place] % (Auto) 7.1 Eos % (Auto) 1.8 Baso % (Auto) 0.5 Lymph # (Auto) 1.95 [place] # (Auto) 0.8 H Eos # (Auto) 0.2 Baso # (Auto) 0.1 Abs Immat Gran (auto) 0.04 H Absolute Neuts (auto) 7.8 H Absolute Nucleated RBC 0.000 Nucleated RBC % 0.0 PT INR APTT VBG pH VBG pCO2 VBG pO2 VBG HCO3 O2 Delivery Device O2 Liters/Min FiO2 Sodium 138 Potassium 3.2 L Chloride 104 Carbon Dioxide 26 Anion Gap 8 BUN 15 Creatinine 0.95 Estim Creat Clear Calc 76 Estimated GFR > 60 Glucose 111 H POC Capillary Glucose 131 H Lactic Acid Calcium 8.5 Magnesium 2.0 Total Bilirubin AST ALT Alkaline Phosphatase NT-Pro-B Natriuret Pep Total Protein Albumin Lipase Procalcitonin 0.0 TSH (Reflex) Urine Color Urine Appearance Urine pH Ur Specific [place] Urine Protein Urine Glucose (UA) Urine Ketones Ur Blood (Man) Urine Nitrate Urine Bilirubin Urine Urobilinogen Add Ur Microanalysis Leukocyte Esterase Rfl Urine RBC Urine WBC Ur Squamous Epith Cells Urine Bacteria Urine Casts Nasal MRSA (PCR) Not detected Salicylates Urine Opiates Screen Urine Methadone Screen Acetaminophen Ur Barbiturates Screen Ur Phencyclidine Scrn Ur Amphetamine Screen U Benzodiazepines Scrn Urine Cocaine Screen U Cannabinoids Screen Ethyl Alcohol Influenza A (RT-PCR) Influenza B (RT-PCR) RSV (RT-PCR) SARS-CoV-2 RNA (RT-PCR) Quality VTE Prophylaxis VTE prophylaxis: mechanical ordered
[2025-09-03 07:56] LABS: MRSA (PCR) NOT DETECTED (NOT DETECTE)
--- NOTE | 2025-09-03 08:42 | WPDNEURCNPN ---
Assessment and Plan Assessment and plan (1) Dementia: Code(s): F03.90 - Unspecified dementia, unspecified severity, without behavioral disturbance, psychotic disturbance, mood disturbance, and anxiety Status: Acute (2) TIA (transient ischemic attack): Code(s): G45.9 - Transient cerebral ischemic attack, unspecified Status: Acute (3) Seizure: Code(s): R56.9 - Unspecified convulsions Status: Acute Plan 1. Ongoing dementia with acute changes in the mental status rule out the possibility of the unwitnessed seizure. 2. Possibility of the TIA versus stroke versus tumor will benefit from the MRI of the brain. 3. Will need B12 folate level, CTA, echocardiogram for the long-term recommendation. Consult date: 09/03/25 HPI: Robel Winkler is a 75 year old male Admitted to the hospital through the emergency room for the complaints of change in the mental status, patient was found wandering around the parking lot of [facility] pharmacy, ambulance was called to the scene and was brought to the hospital ER where he was noted to be awake alert only 1 to 2 times and he was unaware what he was doing at [facility]. There was no history of any associated generalized symptomatology. He was documented to have multiple allergies in the ER including diazepam, lisinopril, metoprolol, lovastatin, Bactrim, NSAIDs, in the past he has the history above 1. Coronary artery disease 2. Abdominal aortic aneurysm 3. Atrial fibrillation 4. Diabetes mellitus 5. Dementia 6. Depression and 7. Hypertension in the ER his exam was without any significant abnormalities and his vital signs were with blood pressure 193/93. CBC was with WBC 12.8, basic metabolic panel with potassium 3.2 and creatinine 1.26, UA was normal, drug screen was negative, and also screening for the influenza a, influenza B, SV, and SARs COVID were all negat . His initial ABGs were abnormal.. CT scan of the brain revealed no bleed, no hydrocephalus and no major stroke. X-ray of the chest raise the possibility of congestive heart failure with superimposed right lower lobe pneumonia possibility but CT scan documented right middle and right lower lobe stable atelectasis. 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 Review of Systems Review of Systems: All systems reviewed & are unremarkable except as noted in HPI and below PMFSH Past Medical History Medical History Coronary artery disease Abdominal aortic aneurysm Diabetes Afib Dementia Depression Hypertension Social History Social History Years smoked: 10 Smoking status: Former smoker Tobacco type: cigars Second hand tobacco smoke exposure: No Additional smoking assessment comments: one to two cigars/day Alcohol intake: never Substance use: never Substance use type: does not use Spiritual care concerns: No Meds Home Medications and Allergies Home Medications ?Medication ?Instructions ?Recorded ?Confirmed ?Type Lactobacillus acidophilus 1 1,000 mmu cells PO DAILY take 2 09/03/25 09/03/25 History billion cell capsule caps daily apixaban 5 mg tablet 5 mg PO BID 09/03/25 09/03/25 History aspirin 81 mg tablet 81 mg PO DAILY 09/03/25 09/03/25 History cholecalciferol (vitamin D3) 50 50 mcg PO DAILY 09/03/25 09/03/25 History mcg (2,000 unit) capsule clonidine HCl 0.2 mg tablet 0.1 mg PO Q12H 09/03/25 09/03/25 History donepezil 10 mg tablet 10 mg PO HS 09/03/25 09/03/25 History ezetimibe 10 mg tablet 10 mg PO DAILY 09/03/25 09/03/25 History hydralazine 50 mg tablet 50 mg PO QID 09/03/25 09/03/25 History latanoprost 0.005 % eye drops 1 drp EACH EYE DAILY 09/03/25 09/03/25 History lisinopril 20 mg tablet 20 mg PO DAILY 09/03/25 09/03/25 History oxybutynin chloride 10 mg 10 mg PO DAILY 09/03/25 09/03/25 History tablet,extended release 24 hr pantoprazole 40 mg tablet,delayed 40 mg PO Q12H 09/03/25 09/03/25 History release sennosides 8.6 mg-docusate sodium 1 tab-cap PO BID 09/03/25 09/03/25 History 50 mg tablet tamsulosin 0.4 mg capsule 0.8 mg PO Q24H 09/03/25 09/03/25 History Allergies Allergy/AdvReac Type Severity Reaction Status Date / Time diazepam Allergy Mild Unknown Verified 09/03/25 02:44 lisinopril Allergy Mild Cough Verified 09/03/25 02:44 metoprolol Allergy Mild Unknown Verified 09/03/25 02:44 simvastatin Allergy Mild Unknown Verified 09/03/25 02:44 sulfamethoxazole (From Allergy Mild Unknown Verified 09/03/25 02:44 Bactrim) trimethoprim (From Bactrim) Allergy Mild Unknown Verified 09/03/25 02:44 NSAIDS (Non-Steroidal Allergy Unknown Verified 09/03/25 02:44 Anti-Inflamma Vital Signs Vital Signs - 24 hr 09/02/25 17:08 09/02/25 17:19 09/02/25 17:19 Temperature 36.5 C Pulse Rate 88 89 Respiratory Rate 16 Blood Pressure 193/93 H Pulse Oximetry 96 95 Oxygen Delivery Room Air Room Air 09/02/25 18:35 09/03/25 01:09 09/03/25 01:38 Temperature Pulse Rate 79 73 Respiratory Rate 13 20 Blood Pressure 176/98 H 149/59 H Pulse Oximetry 96 94 Oxygen Delivery Room Air 09/03/25 01:54 09/03/25 01:55 09/03/25 03:21 Temperature 36.7 C Pulse Rate 74 Respiratory Rate 20 Blood Pressure 231/79 H 270/110 H 210/110 H Pulse Oximetry 96 Oxygen Delivery 09/03/25 04:00 09/03/25 04:30 09/03/25 05:54 Temperature Pulse Rate 73 Respiratory Rate Blood Pressure 240/110 H 160/90 H Pulse Oximetry Oxygen Delivery 09/03/25 06:00 Temperature 36.8 C Pulse Rate 75 Respiratory Rate 18 Blood Pressure Pulse Oximetry 97 Oxygen Delivery Exam Narrative: Exam this morning revealed him to be awake alert somewhat slow in following the verbal commands appropriately, his speech not dysphasic not dysarthric, he was aware that he was visiting someone and then he became confused, head normocephalic with no bruit, neck supple with no meningeal signs no cervical bruit, no thyromegaly no lymphadenopathy, heart regular, lungs clear with no rhonchi or crepitations, abdomen is soft protuberant no organomegaly, neurological examination revealed him to be awake alert somewhat slow in responding and somewhat slow in getting out what happened, his speech was not dysphasic not dysarthric, pupils were round regular reacting to light, feels the vision were full to threat stimuli, in all 4 quadrants, extraocular movements were full with no nystagmus, facial sensation was intact, face was symmetrical, tongue was in the oral cavity, motor examination revealed him to have generally decreased strength but no focal motor deficit, and the reflexes were sluggish plantar responses were down he had decreased sensation distally in both lower extremities, Results Labs 09/03/25 05:13 09/03/25 05:13 Labs: Short CBC 09/02/25 09/03/25 Range/Units 17:27 05:13 WBC 12.8 H 10.8 H (4.5-10.0) K/mm3 Hgb 15.7 14.8 (14.0-18.0) g/dL Hct 47.0 45.0 (42.0-52.0) % Plt Count 241 227 (150-375) k/mm3 BMP 09/02/25 09/03/25 17:27 05:13 Sodium 139 138 Potassium 3.2 L 3.2 L Chloride 106 104 Carbon Dioxide 23 26 BUN 19 15 Creatinine 1.26 0.95 Glucose 133 H 111 H Calcium 8.8 8.5 Liver Function 09/02/25 Range/Units 17:27 Total Bilirubin 0.8 (0.2-1.3) mg/dL AST 26 (17-59) U/L ALT 17 (6-50) U/L Alkaline Phosphatase 122 (38-126) U/L Albumin 3.9 (3.5-5.1) g/dL Urine 09/02/25 Range/Units 18:30 Urine Color Yellow (Yellow) Urine Appearance Clear (Clear) Urine pH 5.5 (5.0-9.0) Ur Specific [place] 1.025 (1.001-1.035) Urine Protein 3+ H (Negative) mg/dL Urine Glucose (UA) Negative (Negative) mg/dL
--- NOTE | 2025-09-03 12:31 | PCSTNOTE ---
Please refer to the Bedside Swallow Evaluation in the EMR. Please note, silent aspiration cannot be ruled out at bedside. This pleasant 75 year old male patient was admitted to [facility] on 09/02 due to altered mental status. The pt has a past medical history of dementia and was diagnosed with pneumonia. A BSE was ordered to rule out aspiration pneumonia. An oral motor exam was completed. Pt demonstrated appropriate strength and range of mobility for oral intake and is missing some lower, posterior dentition. The pt was observed on PO trials of thin liquid, puree, mixed, and solid consistencies via straw, spoon, and hand. The pt remained alert throughout the evaluation and completed PO trials independently. Oral stage: within normal limits; the pt demonstrated timely bolus preparation and efficient oral transit with no oral residue. Pharyngeal stage: within normal limits; a timely swallow was triggered with efficient pharyngeal bolus clearance and no s/s of penetration or aspiration observed. Please note, silent aspiration cannot be ruled out at bedside. Recommendations: An IDDSI Level 7 regular solids, IDDSI Level 1 thin liquids diet is recommended with routine oral care. The pt may complete oral intake independently while following standard swallowing precautions: Sit upright, take small bites/sips and slow down rate of oral intake. Nishi Yeh APRN and SARAHY Adan were informed of BSE results and recommendations. Thank you for this referral.
[2025-09-03] MEDS: SENNA/DOCUSATE SODIUM TABLET 1 TAB PO (17:55)
[2025-09-03] MEDS: LATANOPROST 0.005% OP SOLN 2.5 ML BTL 1 DROP EACH EYE (17:55)
[2025-09-03] MEDS: DONEPEZIL HCL 10 MG TABLET PO (20:10)
[2025-09-03] MEDS: APIXABAN 5 MG TABLET PO (20:10)
[2025-09-03] MEDS: PANTOPRAZOLE 40 MG TABLET PO (20:10)
[2025-09-04] VITALS (10 sets, daily range): BP systolic 140–154; BP diastolic 50–81; PULSE 57–93; RESP 17–24; TEMP 36.4–36.7; O2SAT 94–98
--- NOTE | 2025-09-04 | ECHO_ITS ---
Patient Info Name: Robel Winkler Age: 75 years : 1950 Gender: Male Ht: 27 in Wt: 551 lbs BSA: 2.53 m2 HR: 61 bpm BP: 154 / 72 mmHg Heart Rhythm: Sinus Rhythm Technical Quality: Fair Exam Date: 09/04/2025 1:54 PM Patient Status: I Admit Date: 09/02/2025 Exam Type: CA echo dop bubble study w con Complete two-dimentional, color flow and Doppler transthoracic echocardiogram is performed with agitated saline and with contrast to opacify the left ventricle and to improve the delineation of the left ventricle endocardial borders. Staff Referring Physician: Nishi Yeh Records Coordinator: Lina Pope Attending Provider: Radha Lipscomb Contrast/Agitated Saline Contrast/Ag. Saline: Definity Amount: 2.00 ml Administered By: Lina Pope Existing IV Access: Yes IV Access Condition: patent with no signs of infiltration Contrast/Ag. Saline: Agitated Saline Amount: 20.00 ml Existing IV Access: Yes IV Access Condition: patent with no signs of infiltration Summary 1. Overall poor acoustic windows in this suboptimal study. 2. Agitated saline study with suboptimal views however there was no definite [id number] shunting. 3. There is normal biventricular size and systolic function. Left Ventricle The left ventricle is normal in size with hyperdynamic systolic function. The left ventricular ejection fraction is visually estimated to be greater than 70%. Right Ventricle The right ventricle is normal in size and systolic function. Left Atria The left atrium is mildly dilated. Right Atria The right atrium is normal size. Atrial Septum Agitated saline study with suboptimal views however there was no definite [id number] shunting. Aortic Valve The aortic valve is not well visualized. There is no aortic stenosis. Pulmonic Valve The pulmonic valve is not visualized. Mitral Valve The mitral is normal. There is no mitral regurgitation. Tricuspid Valve The tricuspid valve is not well visualized. There is no tricuspid regurgitation. Pericardium/Pleural Pericardium is normal in appearance with no evidence for significant pericardial effusion. Inferior Vena Cava Inferior vena cava is not well visualized. Aorta The aortic root is not well visualized. Left Ventricular Outflow Tract Name Value Normal LVOT 2D LVOT Diameter 2.0 cm LVOT Doppler LVOT Peak Velocity 133 cm/s LVOT Peak Gradient 7 mmHg LVOT Mean Gradient 4 mmHg LVOT VTI 23 cm LVOT VTI/AV VTI Ratio 1.0 LVOT Stroke Volume 74 ml LVOT CO 6.6 l/min LVOT CI 2.6 l/min/m2 Pulmonic Valve Name Value Normal RVOT Doppler RVOT Peak Velocity 72 cm/s RVOT Peak Gradient 2 mmHg PV Doppler PV Peak Velocity 142 cm/s PV Peak Gradient 8 mmHg Mitral Valve Name Value Normal MV Diastolic Function MV E Peak Velocity 84 cm/s MV A Peak Velocity 148 cm/s MV E/A 0.6 MV Decel Time (PW) 146 ms MV Annular TDI MV E/e' (Septal) 15.5 MV E/e' (Lateral) 12.3 MV E/e' (Average) 13.9 Tricuspid Valve Name Value Normal TV Annular TDI TV Lateral Sulema s' Velocity 13.7 cm/s >=9.5 Aorta Name Value Normal Ascending Aorta Ao Root Diameter (MM) 4.3 cm Ao Root Diam Index (MM) 1.7 cm/m2 Aortic Valve Name Value Normal AV Doppler AV Peak Velocity 154 cm/s AV Peak Gradient 9 mmHg AV Mean Gradient 4 mmHg AV VTI 22 cm AV Area (Cont Eq VTI) 3.3 cm2 >=3.0 AV Area (Cont Eq Delvin) 2.8 cm2 AV DI (Delvin) 0.86 AV Regurgitation 2D LVOT Area 3.2 cm2 Ventricles Name Value Normal LV Dimensions 2D/MM IVS Diastolic Thickness (2D) 1.1 cm 0.6-1.0 LVID Diastole (2D) 5.6 cm 4.2-5.8 LVIW Diastolic Thickness (2D) 1.0 cm 0.6-1.0 LVID Systole (2D) 3.5 cm 2.5-4.0 LVOT Diameter 2.0 cm LV Mass (2D Cubed) 239.30 g 88.00-224.00 LV Mass Index (2D Cubed) 94 g/m2 49-115 Relative Wall Thickness (2D) 0.37 <=0.42 LV Fractional Shortening/Ejection Fraction 2D/MM LV Fractional Shortening (2D) 37 % 25-43 LV EF (2D Teichholz) 67 % LV Diastolic Volume (4C MOD) 73 ml LV EF (4C MOD) 69 % LV Diastolic Volume (2C MOD) 64 ml LV EF (2C MOD) 67 % LV Diastolic Volume (BP MOD) 71 ml 62-150 LV Diastolic Volume Index (BP MOD) 28 ml/m2 34-74 LV Systolic Volume (BP MOD) 23 ml 21-61 LV Systolic Volume Index (BP MOD) 9 ml/m2 11-31 LV EF (BP MOD) 67 % 52-72 LV Diastolic Length (4C) 8.5 cm LV Systolic Length (4C) 7.2 cm LV Stroke Volume (4C MOD) 51 ml Atria Name Value Normal LA Dimensions LA Dimension (MM) 5.1 cm 3.0-4.0 LA Volume (4C A-L) 108 ml LA Volume (BP A-L) 110 ml RA Dimensions RA Area (4C) 13.2 cm2 <=18.0 Report Signatures
[2025-09-04] MEDS: cefTRIAXone 2 GM in SODIUM CHLORIDE 0.9% IV 100 ML 200 ML IVPB (01:09)
[2025-09-04] MEDS: DOXYCYCLINE IV 100 MG in SODIUM CHLORIDE 0.9% IV 100 ML IVPB ×2 (01:10→14:46)
[2025-09-04 04:36] LABS: Hematocrit 43.2 % (42.0-52.0); Hemoglobin 14.1 g/dL (14.0-18.0); Immature Granulocyte Percent A 0.6 % (0-0.5); Lymphocytes Absolute Auto 1.42 K/mm3 (0.9-3.2); Mean Corpuscular HGB Conc 32.6 g/dl (32-36); Mean Corpuscular Hemoglobin 28.5 pg (26-34); Mean Corpuscular Volume 87.3 fl (80-100); Nucleated Red Blood Cells Absolute Auto 0.000 K/mm3 (0.0-0.012); Nucleated Red Blood Cells Perc 0.0 % (0.0-0.2); Platelet Count Result 208 k/mm3 (150-375); Red Blood Count 4.95 M/mm3 (4.6-6.20); White Blood Count 10.6 K/mm3 (4.5-10.0)
[2025-09-04 04:51] LABS: Alanine Aminotransferase 13 U/L (6-50); Albumin Level 3.4 g/dL (3.5-5.1); Alkaline Phosphatase 99 U/L (38-126); Anion Gap 6 mmol/L (4-12); Aspartate Amino Transferase 21 U/L (17-59); Bilirubin,Total 0.7 mg/dL (0.2-1.3); Blood Urea Nitrogen 21 mg/dL (9-20); Calcium 8.5 mg/dL (8.4-10.2); Carbon Dioxide 26 mmol/L (22-30); Chloride 104 mmol/L (98-107); Estimated CRCL calculation 57 ml/min; Estimated Glomerular Filt Rate 55; Glucose 126 mg/dL (65-110); Potassium 3.3 mmol/L (3.4-5.0); Sodium 136 mmol/L (137-145); Total Protein 6.7 g/dL (6.3-8.2)
--- NOTE | 2025-09-04 08:05 | PM.IMPN ---
Progress Note: A&P Assessment and Plan (1) Dementia: Code(s): F03.90 - Unspecified dementia, unspecified severity, without behavioral disturbance, psychotic disturbance, mood disturbance, and anxiety Status: Acute Assessment and Plan: patient presented with altered mental status unclear if this is his baseline or his dementia is progressing or there is a compounding etiology s/p CT head Neurology consult neurology recommended to check CTA head and neck, MRI brain, vit B12/Folate levels, ECHO and EEG unable to order MRI due to patient having an implanted pacemaker (2) Pneumonia: Code(s): J18.9 - Pneumonia, unspecified organism Status: Acute Assessment and Plan: s/p CXR with RLL pneumonia MRSA swab negative d/c IV vancomycin continue IV ceftriaxone continue IV doxycycline wbc slowly improving AM labs (3) Pleural effusion: Code(s): J90 - Pleural effusion, not elsewhere classified Status: Acute Assessment and Plan: s/p CXR with small right pleural effusion on room air [facility] and it appears patient had a small right pleural effusion when he was admitted on 08/16/2025, ? if this is chronic vs acute plan for repeat CXR before discharge (4) Hypokalemia: Code(s): E87.6 - Hypokalemia Status: Acute Assessment and Plan: s/p replacement today k 3.3 PO potassium chloride 40 meq ordered AM labs (5) DM type 2 (diabetes mellitus, type 2): Code(s): E11.9 - Type 2 diabetes mellitus without complications Status: Acute Assessment and Plan: accu checks avoid hypoglycemia SSI check [id number] (6) Essential hypertension: Code(s): I10 - Essential (primary) hypertension Status: Acute Assessment and Plan: BP has been high since admission, 270/110, 240/110, 160/90 s/p PO clonidine and IV hydralazine PRN hydralazine for SBP > 160 restarted home medications clonidine 0.1 mg Q 12 hours hydralazine PO 50 mg QID BP improving 143/51, 149/61, 154/72 (7) Paroxysmal A-fib: Code(s): I48.0 - Paroxysmal atrial fibrillation Status: Acute Assessment and Plan: also has a history of bradycardia telemetry continue Eliquis for anticoagulation Subjective Date/time seen: 09/04/25 08:05 Interval history: Patient seen for a follow up visit. Patient lying in bed, in no acute distress. Patient denies acute pain. Patient was seen by neurology and it was recommended to obtain a CTA head/neck, brain MRI, folate/b12 levels, ECHO and EEG. Orders placed except for the MRI as patient has an implanted pacemaker. Patient continues on IV ceftriaxone and IV doxycycline. WBC count is slowly improving, 10.6 today. Potassium is 3.3 today, oral potassium 40 meq ordered. Plan is for patient to discharge to assisted once medically cleared, care coordination working on acceptance. Review of Systems Review of Systems: ROS unobtainable: Yes unobtainable due to mental status Exam Const: General: comfortable Other: Pleasantly confused HENMT: Other: Extremely poor dentition, teeth covered in plaque, severe halitosis Eyes: Pupils: Equal, round and reactive pupils present EOM: EOMs intact bilaterally Neck: Neck: supple Resp: Effort & Inspection: normal respiratory effort Auscultation: clear to auscultation bilaterally Cardio: Rate: regular rate Rhythm: regular rhythm Heart sounds: no murmurs GI: Inspection: non-distended Auscultation: normal bowel sounds Neuro: Cranial nerves: Yes Equal, round and reactive pupils present Motor exam (neuro): 5/5 motor strength present throughout Other: Does not fully participate with neurologic exam. Extrem: General: no edema Objective Data Vital Signs Vital Signs: Vital Signs - 24 hr 09/03/25 11:58 09/03/25 12:00 09/03/25 14:00 Temperature 97.6 F Pulse Rate 72 61 Respiratory Rate 18 Blood Pressure 134/61 Pulse Oximetry 100 Oxygen Delivery Room Air 09/03/25 16:00 09/03/25 17:55 09/03/25 18:34 Temperature Pulse Rate 64 Respiratory Rate Blood Pressure 205/60 H 214/83 H Pulse Oximetry Oxygen Delivery 09/03/25 18:53 09/03/25 19:29 09/03/25 19:55 Temperature 98.0 F Pulse Rate 68 65 Respiratory Rate 20 Blood Pressure 210/90 H 143/51 H Pulse Oximetry 94 Oxygen Delivery 09/03/25 23:04 09/03/25 23:15 09/04/25 00:00 Temperature Pulse Rate 66 61 Respiratory Rate 17 Blood Pressure 149/61 H Pulse Oximetry Oxygen Delivery Autopap 09/04/25 02:32 09/04/25 04:26 Temperature 97.8 F Pulse Rate 70 61 Respiratory Rate 17 20 Blood Pressure 154/72 H Pulse Oximetry 98 Oxygen Delivery Autopap Intake/Output Intake/Output: Intake & Output 09/01/25 09/02/25 09/03/25 09/04/25 23:59 23:59 23:59 23:59 Intake Total 1000 1140 330 Output Total 1180 Balance 1000 -40 330 Meds/Results Medications: Active Medications Generic Name Dose Route Start Last Admin Trade Name Freq PRN Reason Stop Dose Admin Apixaban 5 mg 09/03/25 21:00 09/03/25 20:10 Apixaban 5 Mg Tablet PO 5 mg Q12HR HANNAH Administration Aspirin 81 mg 09/04/25 09:00 Aspirin 81 Mg Enteric Tablet PO DAILY HANNAH Clonidine HCl 0.1 mg 09/03/25 18:00 09/04/25 04:55 Clonidine Hcl 0.1 Mg Tablet PO 0.1 mg Q12H HANNAH Administration Dextrose 12.5 gm 09/03/25 01:38 Dextrose 50% 25 Gm/50 Ml Syringe IV PUSH PRN PRN Hypoglycemia Protocol Donepezil HCl 10 mg 09/03/25 21:00 09/03/25 20:10 Donepezil Hcl 10 Mg Tablet PO 10 mg HS HANNAH Administration Ezetimibe 10 mg 09/04/25 09:00 Ezetimibe 10 Mg Tablet PO DAILY HANNAH Glucose 15 gm 09/03/25 01:38 Glucose Oral Gel 15 Gm Of Glucse In 37.5 Gm Tube PO PRN PRN Hypoglycemia Protocol Hydralazine HCl 10 mg 09/03/25 10:54 09/03/25 18:59 Hydralazine Hcl 20 Mg/Ml Vial IV PUSH 10 mg Q8H PRN Administration Blood Pressure - High Hydralazine HCl 50 mg 09/03/25 17:00 09/03/25 20:10 Hydralazine Hcl 50 Mg Tablet PO 50 mg QID HANNAH Administration Ceftriaxone Sodium 2 gm/ 100 mls @ 200 mls/hr 09/04/25 00:00 09/04/25 01:09 Sodium Chloride IVPB 200 mls/hr Q24H HANNAH Administration Doxycycline Hyclate 100 mg/ 100 mls @ 100 mls/hr 09/03/25 14:00 09/04/25 01:10 Sodium Chloride IVPB 09/07/25 14:59 100 mls/hr Q12H HANNAH Administration Dextrose 1,000 mls @ 100 mls/hr 09/03/25 01:38 Dextrose 5% 1,000 Ml IVPB PRN PRN Hypoglycemia Protocol Insulin Aspart 2 - 5 units 09/03/25 08:00 09/03/25 17:55 Insulin Aspart (*Bkc) 100 Units/Ml SUB-Q Not Given TIDWM HANNAH Protocol Insulin Aspart 1 - 2 units 09/03/25 21:00 09/03/25 21:21 Insulin Aspart (*Bkc) 100 Units/Ml SUB-Q Not Given HS [facility] Protocol Lactobacillus Acidophilus 1 tablet 09/04/25 09:00 Acidophilus/Bulgaricus Chewable Tablet BY MOUTH DAILY [facility] Latanoprost 1 drop 09/03/25 18:00 09/03/25 17:55 Latanoprost 0.005% Op Soln 2.5 Ml Btl EACH EYE 1 drop DAILY@1800 HANNAH Administration Oxybutynin Chloride 10 mg 09/04/25 09:00 Oxybutynin Chloride Xl 5 Mg Tab.Er.24 PO DAILY [facility] Pantoprazole Sodium 40 mg 09/03/25 21:00 09/03/25 20:10 Pantoprazole 40 Mg Tablet PO 40 mg Q12HR HANNAH Administration Senna/Docusate Sodium 1 tab 09/03/25 17:00 09/03/25 17:55 Senna/Docusate Sodium Tablet PO 1 tab BID HANNAH Administration Tamsulosin HCl 0.8 mg 09/04/25 09:00 Tamsulosin Hcl 0.4 Mg Capsule PO DAILY [facility] Vitamin D 50 mcg 09/04/25 09:00 Cholecalciferol (Vitamin D3) 25 Mcg (1,000 Units) Tablet PO DAILY [facility] Radiology Results: ITS Impressions Head CT 09/02/25 19:36 Impression: 1.No acute intracranial abnormality. Chest X-Ray 09/02/25 19:44 Impression: CHF. Superimposed probable right lower lobe pneumonia Chest/Abdomen/Pelvis CT 09/03/25 08:04 IMPRESSION: 1. Small right pleural effusion with pleural thickening, likely an exudate. 2. Peripheral airspace opacities in right middle lobe and right lower lobe, consistent with rounded atelectasis. 3. Bilateral inguinal hernias containing fat. Labs Labs: Laboratory Results - last 24 hr 09/03/25 09/03/2509/03/25 12:06 17:04 21:08 WBC RBC Hgb Hct MCV MCH MCHC RDW Plt Count MPV Immature Gran % (Auto) Neut % (Auto) Lymph % (Auto) [place] % (Auto) Eos % (Auto) Baso % (Auto) Lymph # (Auto) [place] # (Auto) Eos # (Auto) Baso # (Auto) Abs Immat Gran (auto) Absolute Neuts (auto) Absolute Nucleated RBC Nucleated RBC % Sodium Potassium Chloride Carbon Dioxide Anion Gap BUN Creatinine Estim Creat Clear Calc Estimated GFR Glucose POC Capillary Glucose 135 H 151 H 125 H Calcium Total Bilirubin AST ALT Alkaline Phosphatase Total Protein Albumin 09/04/25 09/04/25 04:16 07:42 WBC 10.6 H RBC 4.95 Hgb 14.1 Hct 43.2 MCV 87.3 MCH 28.5 MCHC 32.6 RDW 14.2 Plt Count 208 MPV 11.0 H Immature Gran % (Auto) 0.6 H Neut % (Auto) 76.5 H Lymph % (Auto) 13.4 L [place] % (Auto) 6.7 Eos % (Auto) 2.3 Baso % (Auto) 0.5 Lymph # (Auto) 1.42 [place] # (Auto) 0.7 H Eos # (Auto) 0.2 Baso # (Auto) 0.1 Abs Immat Gran (auto) 0.06 H Absolute Neuts (auto) 8.1 H Absolute Nucleated RBC 0.000 Nucleated RBC % 0.0 Sodium 136 L Potassium 3.3 L Chloride 104 Carbon Dioxide 26 Anion Gap 6 BUN 21 H Creatinine 1.28 Estim Creat Clear Calc 57 Estimated GFR 55 L Glucose 126 H POC Capillary Glucose 124 H Calcium 8.5 Total Bilirubin 0.7 AST 21 ALT 13 Alkaline Phosphatase 99 Total Protein 6.7 Albumin 3.4 L Quality VTE Prophylaxis VTE prophylaxis: mechanical ordered and pharmacologic ordered
[2025-09-04] MEDS: CHOLECALCIFEROL (VITAMIN D3) 25 MCG (1,000 UNITS) TABLET 50 MCG PO (08:41)
[2025-09-04] MEDS: POTASSIUM CHLORIDE 20 MEQ ER TABLET 40 MEQ PO (08:41)
[2025-09-04] MEDS: ACIDOPHILUS/BULGARICUS CHEWABLE TABLET 1 TABLET BY MOUTH (08:41)
[2025-09-04] MEDS: ASPIRIN 81 MG ENTERIC TABLET PO (08:41)
[2025-09-04] MEDS: APIXABAN 5 MG TABLET PO ×2 (08:41→21:23)
[2025-09-04] MEDS: oxyBUTYnin CHLORIDE XL 5 MG TAB.ER.24 10 MG PO (08:42)
[2025-09-04] MEDS: PANTOPRAZOLE 40 MG TABLET PO ×2 (08:42→21:23)
[2025-09-04] MEDS: SENNA/DOCUSATE SODIUM TABLET 1 TAB PO ×2 (08:42→17:30)
[2025-09-04] MEDS: EZETIMIBE 10 MG TABLET PO (08:42)
[2025-09-04] MEDS: TAMSULOSIN HCL 0.4 MG CAPSULE 0.8 MG PO (08:43)
[2025-09-04 09:48] LABS: Vitamin B12 246.0 pg/mL (239-931)
[2025-09-04] MEDS: PERFLUTREN LIPID MICROSPHERES 1.5 ML VIAL DILUTED TO 10 ML TOTAL VOLUME IV PUSH (14:00)
--- NOTE | 2025-09-04 14:26 | PCOTNOTE ---
Attempted to see pt twice today. First attempt, pt was meeting with assisted living personnel in the room. Second attempt, pt was getting an echo. Will continue to follow for OT evaluation.
--- NOTE | 2025-09-04 15:51 | PCNEURO ---
Contacted nurse about completing EEG tomorrow 09/05.
--- NOTE | 2025-09-04 16:44 | IVDEFINITY ---
Prior to administration of IV Definity the patient was educated on the risks and benefits of the imaging enhancing agent including potential adverse side effects. The patient verbalized understanding. Allergies were verified. No exclusion criteria were identified and at least one of the following inclusion criteria were met: 1) physician request, 2) patient technically difficult to image (per the [place] [employer] guidelines of two or more segments not discernable within the apical view), or 3) questionable left ventricular function. ?
[2025-09-04] MEDS: LATANOPROST 0.005% OP SOLN 2.5 ML BTL 1 DROP EACH EYE (17:31)
[2025-09-04] MEDS: DONEPEZIL HCL 10 MG TABLET PO (21:23)
[2025-09-05] VITALS (11 sets, daily range): BP systolic 124–160; BP diastolic 77–91; PULSE 58–74; RESP 18–24; TEMP 36.4–36.9; O2SAT 93–97
[2025-09-05] MEDS: cefTRIAXone 2 GM in SODIUM CHLORIDE 0.9% IV 100 ML 200 ML IVPB (00:55)
[2025-09-05] MEDS: DOXYCYCLINE IV 100 MG in SODIUM CHLORIDE 0.9% IV 100 ML IVPB ×2 (01:02→14:05)
[2025-09-05 04:46] LABS: Hematocrit 41.9 % (42.0-52.0); Hemoglobin 13.6 g/dL (14.0-18.0); Immature Granulocyte Percent A 0.6 % (0-0.5); Lymphocytes Absolute Auto 1.48 K/mm3 (0.9-3.2); Mean Corpuscular HGB Conc 32.5 g/dl (32-36); Mean Corpuscular Hemoglobin 28.3 pg (26-34); Mean Corpuscular Volume 87.3 fl (80-100); Nucleated Red Blood Cells Absolute Auto 0.000 K/mm3 (0.0-0.012); Nucleated Red Blood Cells Perc 0.0 % (0.0-0.2); Platelet Count Result 204 k/mm3 (150-375); Red Blood Count 4.80 M/mm3 (4.6-6.20); White Blood Count 9.3 K/mm3 (4.5-10.0)
[2025-09-05 05:07] LABS: Alanine Aminotransferase 10 U/L (6-50); Albumin Level 3.3 g/dL (3.5-5.1); Alkaline Phosphatase 99 U/L (38-126); Anion Gap 6 mmol/L (4-12); Aspartate Amino Transferase 19 U/L (17-59); Bilirubin,Total 0.6 mg/dL (0.2-1.3); Blood Urea Nitrogen 24 mg/dL (9-20); Calcium 8.5 mg/dL (8.4-10.2); Carbon Dioxide 24 mmol/L (22-30); Chloride 106 mmol/L (98-107); Estimated CRCL calculation 57 ml/min; Estimated Glomerular Filt Rate 55; Glucose 129 mg/dL (65-110); Magnesium 2.1 mg/dL (1.6-2.3); Potassium 3.1 mmol/L (3.4-5.0); Sodium 136 mmol/L (137-145); Total Protein 6.5 g/dL (6.3-8.2)
[2025-09-05 05:25] LABS: Hemoglobin A1C 6.5 % (<5.7)
--- NOTE | 2025-09-05 07:28 | PM.IMPN ---
Progress Note: A&P Assessment and Plan (1) Dementia: Code(s): F03.90 - Unspecified dementia, unspecified severity, without behavioral disturbance, psychotic disturbance, mood disturbance, and anxiety Status: Acute Assessment and Plan: patient presented with altered mental status unclear if this is his baseline or his dementia is progressing or there is a compounding etiology s/p CT head Neurology consult neurology recommended to check CTA head and neck, MRI brain, vit B12/Folate levels, ECHO and EEG unable to order MRI due to patient having an implanted pacemaker Head/Neck CTA showed 1. Small amount of atherosclerotic plaque with 0% stenosis of the right and left carotid bulb relative to normal distal artery lumen diameter (NASCET criteria). 2. Moderate 60-70% stenosis at the left P1 segment. No other hemodynamically significant stenosis, thrombosis or aneurysm. 3. 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 4. Unchanged mild asymmetric enlargement of the left lateral ventricle resulting in a 9 mm midline shift at the ventricular septum. There is however no asymmetric effacement of the left-sided sulci or evident obstructing lesion in the region of the foramen of [place] to suggest hydronephrosis. Correlation with any prior outside imaging would be helpful to establish chronicity. No other acute intracranial process. 5. Age-related changes including mild diffuse volume loss and mild to moderate scattered white matter hypoattenuation consistent with chronic small vessel ischemic disease. 6. Mild emphysema with ground glass opacities in the visualized upper lungs most likely atelectasis due to expiratory phase of imaging with differential including less likely mild pulmonary edema or pneumonia. 7. Small right pleural effusion. 8. 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 Vitamin B12 246 Folate 9.0 ECHO - Normal biventricular size and systolic function EF > 70%, agitated saline study with suboptipal views however there was no definite [id number] shunting EEG ordered and should be completed today (2) Pneumonia: Code(s): J18.9 - Pneumonia, unspecified organism Status: Acute Assessment and Plan: s/p CXR with RLL pneumonia MRSA swab negative d/c IV vancomycin continue IV ceftriaxone continue IV doxycycline wbc slowly improving plan to switch to PO antibiotics tomorrow to complete treatment AM labs (3) Pleural effusion: Code(s): J90 - Pleural effusion, not elsewhere classified Status: Acute Assessment and Plan: s/p CXR with small right pleural effusion on [facility] and it appears patient had a small right pleural effusion when he was admitted on 08/16/2025, this appears to be chronic monitor (4) Hypokalemia: Code(s): E87.6 - Hypokalemia Status: Acute Assessment and Plan: s/p replacement today k 3.3 again PO potassium chloride 40 meq ordered AM labs (5) DM type 2 (diabetes mellitus, type 2): Code(s): E11.9 - Type 2 diabetes mellitus without complications Status: Acute Assessment and Plan: accu checks avoid hypoglycemia SSI check [id number] (6) Essential hypertension: Code(s): I10 - Essential (primary) hypertension Status: Acute Assessment and Plan: BP has been high since admission, 270/110, 240/110, 160/90 s/p PO clonidine and IV hydralazine PRN hydralazine for SBP > 160 restarted home medications clonidine 0.1 mg Q 12 hours hydralazine PO 50 mg QID BP appears stable (7) Paroxysmal A-fib: Code(s): I48.0 - Paroxysmal atrial fibrillation Status: Acute Assessment and Plan: also has a history of bradycardia telemetry continue Eliquis for anticoagulation Subjective Date/time seen: 09/05/25 07:28 Interval history: Patient seen for a follow up visit. Patient denies acute pain. Patient still oriented x 1 to self. Patient knows he is in a hospital but unable to tell me the name of it or the town it is located in. Patient's blood pressure has improved since restarting his home medications, continue to monitor. Patient will have the EEG completed today. Neurology is following patient. Patient's wbc count improved today, patient continues on IV antibiotics for pneumonia. Plan to switch to PO antibiotics tomorrow. Care coordination working on placement for discharge. Plan for discharge tomorrow if patient is cleared by neurology. Review of Systems Review of Systems: ROS unobtainable: Yes unobtainable due to mental status Exam Const: General: comfortable Other: Pleasantly confused HENMT: Other: Extremely poor dentition, teeth covered in plaque, severe halitosis Eyes: Pupils: Equal, round and reactive pupils present EOM: EOMs intact bilaterally Neck: Neck: supple Resp: Effort & Inspection: normal respiratory effort Auscultation: clear to auscultation bilaterally Cardio: Rate: regular rate Rhythm: regular rhythm Heart sounds: no murmurs GI: Inspection: non-distended Auscultation: normal bowel sounds Neuro: Cranial nerves: Yes Equal, round and reactive pupils present Motor exam (neuro): 5/5 motor strength present throughout Other: Does not fully participate with neurologic exam. Extrem: General: no edema Objective Data Vital Signs Vital Signs: Vital Signs - 24 hr 09/04/25 08:00 09/04/25 08:00 09/04/25 12:00 Temperature Pulse Rate 63 72 Respiratory Rate Blood Pressure Pulse Oximetry Oxygen Delivery Autopap 09/04/25 14:00 09/04/25 16:00 09/04/25 20:00 Temperature 98.1 F Pulse Rate 93 92 90 Respiratory Rate 18 Blood Pressure 140/50 L Pulse Oximetry 94 Oxygen Delivery 09/04/25 21:05 09/04/25 21:20 09/05/25 00:00 Temperature 97.6 F Pulse Rate 84 57 L 65 Respiratory Rate 24 H 20 Blood Pressure 143/81 H Pulse Oximetry 94 94 Oxygen Delivery Autopap 09/05/25 04:00 09/05/25 04:14 09/05/25 04:28 Temperature 97.6 F Pulse Rate 58 L 74 71 Respiratory Rate 20 24 H Blood Pressure 152/77 H Pulse Oximetry 96 94 Oxygen Delivery Autopap Intake/Output Intake/Output: Intake & Output 09/02/25 09/03/25 09/04/25 09/05/25 23:59 23:59 23:59 23:59 Intake Total 1000 1140 1660 390 Output Total 1180 400 Balance 1000 -40 1260 390 Meds/Results Medications: Active Medications Generic Name Dose Route Start Last Admin Trade Name Freq PRN Reason Stop Dose Admin Apixaban 5 mg 09/03/25 21:00 09/04/25 21:23 Apixaban 5 Mg Tablet PO 5 mg Q12HR HANNAH Administration Aspirin 81 mg 09/04/25 09:00 09/04/25 08:41 Aspirin 81 Mg Enteric Tablet PO 81 mg DAILY HANNAH Administration Clonidine HCl 0.1 mg 09/03/25 18:00 09/05/25 05:16 Clonidine Hcl 0.1 Mg Tablet PO 0.1 mg Q12H HANNAH Administration Cyanocobalamin 500 mcg 09/05/25 09:00 Cyanocobalamin 500 Mcg Tablet PO QAM HANNAH Dextrose 12.5 gm 09/03/25 01:38 Dextrose 50% 25 Gm/50 Ml Syringe IV PUSH PRN PRN Hypoglycemia Protocol Donepezil HCl 10 mg 09/03/25 21:00 09/04/25 21:23 Donepezil Hcl 10 Mg Tablet PO 10 mg HS HNANAH Administration Ezetimibe 10 mg 09/04/25 09:00 09/04/25 08:42 Ezetimibe 10 Mg Tablet PO 10 mg DAILY HANNAH Administration Glucose 15 gm 09/03/25 01:38 Glucose Oral Gel 15 Gm Of Glucse In 37.5 Gm Tube PO PRN PRN Hypoglycemia Protocol Hydralazine HCl 10 mg 09/03/25 10:54 09/03/25 18:59 Hydralazine Hcl 20 Mg/Ml Vial IV PUSH 10 mg Q8H PRN Administration Blood Pressure - High Hydralazine HCl 50 mg 09/03/25 17:00 09/04/25 21:23 Hydralazine Hcl 50 Mg Tablet PO 50 mg QID HANNAH Administration Ceftriaxone Sodium 2 gm/ 100 mls @ 200 mls/hr 09/04/25 00:00 09/05/25 00:55 Sodium Chloride IVPB 200 mls/hr Q24H HANNAH Administration Doxycycline Hyclate 100 mg/ 100 mls @ 100 mls/hr 09/03/25 14:00 09/05/25 01:02 Sodium Chloride IVPB 09/07/25 14:59 100 mls/hr Q12H HANNAH Administration Dextrose 1,000 mls @ 100 mls/hr 09/03/25 01:38 Dextrose 5% 1,000 Ml IVPB PRN PRN Hypoglycemia Protocol Insulin Aspart 2 - 5 units 09/03/25 08:00 09/04/25 17:28 Insulin Aspart (*Bkc) 100 Units/Ml SUB-Q Not Given TIDWM HANNAH Protocol Insulin Aspart 1 - 2 units 09/03/25 21:00 09/04/25 22:51 Insulin Aspart (*Bkc) 100 Units/Ml SUB-Q Not Given HS HANNAH Protocol Lactobacillus Acidophilus 1 tablet 09/04/25 09:00 09/04/25 08:41 Acidophilus/Bulgaricus Chewable Tablet BY MOUTH 1 tablet DAILY HANNAH Administration Latanoprost 1 drop 09/03/25 18:00 09/04/25 17:31 Latanoprost 0.005% Op Soln 2.5 Ml Btl EACH EYE 1 drop DAILY@1800 HANNAH Administration Oxybutynin Chloride 10 mg 09/04/25 09:00 09/04/25 08:42 Oxybutynin Chloride Xl 5 Mg Tab.Er.24 PO 10 mg DAILY HANNAH Administration Pantoprazole Sodium 40 mg 09/03/25 21:00 09/04/25 21:23 Pantoprazole 40 Mg Tablet PO 40 mg Q12HR HANNAH Administration Senna/Docusate Sodium 1 tab 09/03/25 17:00 09/04/25 17:30 Senna/Docusate Sodium Tablet PO 1 tab BID HANNAH Administration Tamsulosin HCl 0.8 mg 09/04/25 09:00 09/04/25 08:43 Tamsulosin Hcl 0.4 Mg Capsule PO 0.8 mg DAILY HANNAH Administration Vitamin D 50 mcg 09/04/25 09:00 09/04/25 08:41 Cholecalciferol (Vitamin D3) 25 Mcg (1,000 Units) Tablet PO 50 mcg DAILY HANNAH Administration Radiology Results: ITS Impressions Head CT 09/02/25 19:36 Impression: 1.No acute intracranial abnormality. Chest X-Ray 09/02/25 19:44 Impression: CHF. Superimposed probable right lower lobe pneumonia Chest/Abdomen/Pelvis CT 09/03/25 08:04 IMPRESSION: 1. Small right pleural effusion with pleural thickening, likely an exudate. 2. Peripheral airspace opacities in right middle lobe and right lower lobe, consistent with rounded atelectasis. 3. Bilateral inguinal hernias containing fat. Head/Neck CTA 09/04/25 09:37 IMPRESSION: 1. Small amount of atherosclerotic plaque with 0% stenosis of the right and left carotid bulb relative to normal distal artery lumen diameter (NASCET criteria). 2. Moderate 60-70% stenosis at the left P1 segment. No other hemodynamically significant stenosis, thrombosis or aneurysm. 3. 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 4. Unchanged mild asymmetric enlargement of the left lateral ventricle resulting in a 9 mm midline shift at the ventricular septum. There is however no asymmetric effacement of the left-sided sulci or evident obstructing lesion in the region of the foramen of [place] to suggest hydronephrosis. Correlation with any prior outside imaging would be helpful to establish chronicity. No other acute intracranial process. 5. Age-related changes including mild diffuse volume loss and mild to moderate scattered white matter hypoattenuation consistent with chronic small vessel ischemic disease. 6. Mild emphysema with ground glass opacities in the visualized upper lungs most likely atelectasis due to expiratory phase of imaging with differential including less likely mild pulmonary edema or pneumonia. 7. Small right pleural effusion. 8. 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 Labs Labs: Laboratory Results - last 24 hr 09/04/25 09/04/25 09/04/25 04:16 07:42 11:31 WBC RBC Hgb Hct MCV MCH MCHC RDW Plt Count MPV Immature Gran % (Auto) Neut % (Auto) Lymph % (Auto) [place] % (Auto) Eos % (Auto) Baso % (Auto) Lymph # (Auto) [place] # (Auto) Eos # (Auto) Baso # (Auto) Abs Immat Gran (auto) Absolute Neuts (auto) Absolute Nucleated RBC Nucleated RBC % Sodium 136 L Potassium 3.3 L Chloride 104 Carbon Dioxide 26 Anion Gap 6 BUN 21 H Creatinine 1.28 Estim Creat Clear Calc 57 Estimated GFR 55 L Glucose 126 H POC Capillary Glucose 124 H 130 H Hemoglobin A1c Calcium 8.5 Magnesium Total Bilirubin 0.7 AST 21 ALT 13 Alkaline Phosphatase 99 Total Protein 6.7 Albumin 3.4 L Vitamin B12 246.0 Folate 9.0 Vancomycin Trough 09/04/25 09/04/25 09/04/25 15:24 17:03 21:21 WBC RBC Hgb Hct MCV MCH MCHC RDW Plt Count MPV Immature Gran % (Auto) Neut % (Auto) Lymph % (Auto) [place] % (Auto) Eos % (Auto) Baso % (Auto) Lymph # (Auto) [place] # (Auto) Eos # (Auto) Baso # (Auto) Abs Immat Gran (auto) Absolute Neuts (auto) Absolute Nucleated RBC Nucleated RBC % Sodium Potassium Chloride Carbon Dioxide Anion Gap BUN Creatinine Estim Creat Clear Calc Estimated GFR Glucose POC Capillary Glucose 135 H 131 H Hemoglobin A1c Calcium Magnesium Total Bilirubin AST ALT Alkaline Phosphatase Total Protein Albumin Vitamin B12 Folate Vancomycin Trough 5.0 L 09/05/25 04:27 WBC 9.3 RBC 4.80 Hgb 13.6 L Hct 41.9 L MCV 87.3 MCH 28.3 MCHC 32.5 RDW 14.4 Plt Count 204 MPV 11.0 H Immature Gran % (Auto) 0.6 H Neut % (Auto) 72.1 Lymph % (Auto) 15.9 L [place] % (Auto) 8.7 H Eos % (Auto) 2.3 Baso % (Auto) 0.4 Lymph # (Auto) 1.48 [place] # (Auto) 0.8 H Eos # (Auto) 0.2 Baso # (Auto) 0.0 Abs Immat Gran (auto) 0.06 H Absolute Neuts (auto) 6.7 Absolute Nucleated RBC 0.000 Nucleated RBC % 0.0 Sodium 136 L Potassium 3.1 L Chloride 106 Carbon Dioxide 24 Anion Gap 6 BUN 24 H Creatinine 1.28 Estim Creat Clear Calc 57 Estimated GFR 55 L Glucose 129 H POC Capillary Glucose Hemoglobin A1c 6.5 H Calcium 8.5 Magnesium 2.1 Total Bilirubin 0.6 AST 19 ALT 10 Alkaline Phosphatase 99 Total Protein 6.5 Albumin 3.3 L Vitamin B12 Folate Vancomycin Trough Quality VTE Prophylaxis VTE prophylaxis: mechanical ordered and pharmacologic ordered
[2025-09-05] MEDS: CHOLECALCIFEROL (VITAMIN D3) 25 MCG (1,000 UNITS) TABLET 50 MCG PO (08:20)
[2025-09-05] MEDS: ACIDOPHILUS/BULGARICUS CHEWABLE TABLET 1 TABLET BY MOUTH (08:20)
[2025-09-05] MEDS: ASPIRIN 81 MG ENTERIC TABLET PO (08:20)
[2025-09-05] MEDS: POTASSIUM CHLORIDE 20 MEQ ER TABLET 40 MEQ PO (08:20)
[2025-09-05] MEDS: PANTOPRAZOLE 40 MG TABLET PO (08:20)
[2025-09-05] MEDS: TAMSULOSIN HCL 0.4 MG CAPSULE 0.8 MG PO (08:21)
[2025-09-05] MEDS: oxyBUTYnin CHLORIDE XL 5 MG TAB.ER.24 10 MG PO (08:21)
[2025-09-05] MEDS: EZETIMIBE 10 MG TABLET PO (08:21)
[2025-09-05] MEDS: APIXABAN 5 MG TABLET PO ×2 (08:21→20:30)
[2025-09-05] MEDS: CYANOCOBALAMIN 500 MCG TABLET PO (08:21)
[2025-09-05] MEDS: SENNA/DOCUSATE SODIUM TABLET 1 TAB PO ×2 (08:21→17:14)
[2025-09-05] MEDS: LATANOPROST 0.005% OP SOLN 2.5 ML BTL 1 DROP EACH EYE (17:15)
[2025-09-05] MEDS: DONEPEZIL HCL 10 MG TABLET PO (20:30)
[2025-09-06] VITALS (10 sets, daily range): BP systolic 158–186; BP diastolic 62–75; PULSE 59–94; RESP 16–20; TEMP 36.4–36.6; O2SAT 93–94
[2025-09-06] MEDS: cefTRIAXone 2 GM in SODIUM CHLORIDE 0.9% IV 100 ML 200 ML IVPB (00:32)
[2025-09-06] MEDS: PANTOPRAZOLE 40 MG TABLET PO ×3 (00:33→20:53)
[2025-09-06] MEDS: DOXYCYCLINE IV 100 MG in SODIUM CHLORIDE 0.9% IV 100 ML IVPB (01:25)
[2025-09-06 05:31] LABS: Hematocrit 41.7 % (42.0-52.0); Hemoglobin 13.5 g/dL (14.0-18.0); Immature Granulocyte Percent A 0.4 % (0-0.5); Lymphocytes Absolute Auto 1.44 K/mm3 (0.9-3.2); Mean Corpuscular HGB Conc 32.4 g/dl (32-36); Mean Corpuscular Hemoglobin 28.4 pg (26-34); Mean Corpuscular Volume 87.8 fl (80-100); Nucleated Red Blood Cells Absolute Auto 0.000 K/mm3 (0.0-0.012); Nucleated Red Blood Cells Perc 0.0 % (0.0-0.2); Platelet Count Result 186 k/mm3 (150-375); Red Blood Count 4.75 M/mm3 (4.6-6.20); White Blood Count 8.6 K/mm3 (4.5-10.0)
[2025-09-06 05:40] LABS: Alanine Aminotransferase 15 U/L (6-50); Albumin Level 3.3 g/dL (3.5-5.1); Alkaline Phosphatase 101 U/L (38-126); Anion Gap 7 mmol/L (4-12); Aspartate Amino Transferase 20 U/L (17-59); Bilirubin,Total 0.4 mg/dL (0.2-1.3); Blood Urea Nitrogen 22 mg/dL (9-20); Calcium 8.4 mg/dL (8.4-10.2); Carbon Dioxide 23 mmol/L (22-30); Chloride 106 mmol/L (98-107); Estimated CRCL calculation 61 ml/min; Estimated Glomerular Filt Rate 59; Glucose 162 mg/dL (65-110); Potassium 3.2 mmol/L (3.4-5.0); Sodium 136 mmol/L (137-145); Total Protein 6.6 g/dL (6.3-8.2)
[2025-09-06] MEDS: CHOLECALCIFEROL (VITAMIN D3) 25 MCG (1,000 UNITS) TABLET 50 MCG PO (08:36)
[2025-09-06] MEDS: ACIDOPHILUS/BULGARICUS CHEWABLE TABLET 1 TABLET BY MOUTH (08:36)
[2025-09-06] MEDS: APIXABAN 5 MG TABLET PO ×2 (08:36→20:51)
[2025-09-06] MEDS: SENNA/DOCUSATE SODIUM TABLET 1 TAB PO ×2 (08:36→17:19)
[2025-09-06] MEDS: EZETIMIBE 10 MG TABLET PO (08:36)
[2025-09-06] MEDS: CYANOCOBALAMIN 500 MCG TABLET PO (08:36)
[2025-09-06] MEDS: ASPIRIN 81 MG ENTERIC TABLET PO (08:36)
[2025-09-06] MEDS: oxyBUTYnin CHLORIDE XL 5 MG TAB.ER.24 10 MG PO (08:36)
[2025-09-06] MEDS: TAMSULOSIN HCL 0.4 MG CAPSULE 0.8 MG PO (08:36)
--- NOTE | 2025-09-06 15:39 | P.PNIM_ITS ---
Progress Note: A&P Assessment and Plan (1) Dementia: Code(s): F03.90 - Unspecified dementia, unspecified severity, without behavioral disturbance, psychotic disturbance, mood disturbance, and anxiety Status: Acute Assessment and Plan: Patient presented with altered mental status unclear if this is his baseline or his dementia is progressing or there is a compounding etiology. 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 * Vitamin B12 246 * Folate 9.0 * ECHO - Normal biventricular size and systolic function EF > 70% (2) Pneumonia: Code(s): J18.9 - Pneumonia, unspecified organism Status: Acute Assessment and Plan: CXR with RLL pneumonia, MRSA swab negative * Transition from IV ceftriaxone and doxy to oral Augmentin and doxy to complete course * Oxygen PRN to maintain 92% * Incentive spirometer (3) Hypokalemia: Code(s): E87.6 - Hypokalemia Status: Acute Assessment and Plan: * PO potassium chloride 40 meq ordered * Trend and replace as needed 3.5-5.0 (4) DM type 2 (diabetes mellitus, type 2): Code(s): E11.9 - Type 2 diabetes mellitus without complications Status: Acute Assessment and Plan: * accu checks * Hypoglycemic protocol * Not on any home medications * A1C 6.5 * Could start metformin 500mg daily at discharge (5) Essential hypertension: Code(s): I10 - Essential (primary) hypertension Status: Acute Assessment and Plan: BP has been high since admission, 270/110, 240/110, 160/90, may have some rebound hypertension if he not been taking his clonidine * PRN hydralazine for SBP > 160 * restarted home medications * clonidine 0.1 mg Q 12 hours * hydralazine PO 50 mg QID * BP per unit protocol * Still running in the 170 will start nifedipine 30mg PO (6) Paroxysmal A-fib: Code(s): I48.0 - Paroxysmal atrial fibrillation Status: Acute Assessment and Plan: History of atrial fib rate controlled * Continue Eliquis Plan Code status: Full code per patient DVT prophylaxis: eliquis Stress ulcer prophylaxis: Protonix 40 BID home medication PT/OT notes: SNF Disposition: Patient continues admission to the medical unit plan for discharge today but [facility] unable to take patient until tomorrow will discharge home to if no events overnight. Time Spent With Patient Time with patient: 15 - 25 minutes Subjective Date/time seen: 09/06/25 15:39 Interval history: Patient is a 75-year-old male admitted for altered mental status likely worsening dementia and pneumonia . 09/06/2025: Assumed Care Patient in no acute distress resting comfortably with no complaints. Plan to discharge but SNF can not take patient until tomorrow. Iv ABX transitioned to oral ABX and remains on room air. Review of Systems Review of Systems: All systems reviewed & are unremarkable except as noted in HPI and below (Subjective) Exam Const: General: comfortable and no acute distress Other: Pleasantly confused alert to self and place HENMT: Other: Extremely poor dentition, teeth covered in plaque, severe halitosis Eyes: Pupils: Equal, round and reactive pupils present EOM: EOMs intact bilaterally Neck: Neck: supple Resp: Effort & Inspection: normal respiratory effort Auscultation: clear to auscultation bilaterally Cardio: Rate: regular rate Rhythm: regular rhythm Heart sounds: no murmurs GI: Inspection: non-distended Auscultation: normal bowel sounds : General: Yes bladder normal to palpation Neuro: Cranial nerves: Yes Equal, round and reactive pupils present Motor exam (neuro): 5/5 motor strength present throughout Sensory Exam: normal sensation Extrem: General: normal to inspection and no edema Psych: Affect: normal affect Objective Data Vital Signs Vital Signs: Vital Signs - 24 hr 09/05/25 16:00 09/05/25 20:00 09/05/25 20:18 Temperature 97.6 F Pulse Rate 70 73 68 Respiratory Rate 20 Blood Pressure 124/87 Pulse Oximetry 93 Oxygen Delivery 09/06/25 00:00 09/06/25 04:00 09/06/25 04:44 Temperature 97.6 F Pulse Rate 59 L 71 64 Respiratory Rate 20 Blood Pressure 186/75 H Pulse Oximetry 94 Oxygen Delivery 09/06/25 05:39 09/06/25 08:45 09/06/25 08:45 Temperature Pulse Rate 65 59 L Respiratory Rate Blood Pressure 173/62 H Pulse Oximetry Oxygen Delivery Room Air Intake/Output Intake/Output: Intake & Output 09/03/25 09/04/25 09/05/25 09/06/25 23:59 23:59 23:59 23:59 Intake Total 1140 1660 1650 770 Output Total 1180 400 300 Balance -40 1260 1350 770 Meds/Results Medications: Active Medications Generic Name Dose Route Start Last Admin Trade Name Freq PRN Reason Stop Dose Admin Amoxicillin/Clavulanate Potassium 1 tablet 09/06/25 21:00 Amoxicillin/Clavulanate K 875-125 Mg Tab PO 09/08/25 09:01 Q12HR HANNAH Apixaban 5 mg 09/03/25 21:00 09/06/25 08:36 Apixaban 5 Mg Tablet PO 5 mg Q12HR HANNAH Administration Aspirin 81 mg 09/04/25 09:00 09/06/25 08:36 Aspirin 81 Mg Enteric Tablet PO 81 mg DAILY HANNAH Administration Clonidine HCl 0.1 mg 09/03/25 18:00 09/06/25 05:42 Clonidine Hcl 0.1 Mg Tablet PO 0.1 mg Q12H HANNAH Administration Cyanocobalamin 500 mcg 09/05/25 09:00 09/06/25 08:36 Cyanocobalamin 500 Mcg Tablet PO 500 mcg QAM HANNAH Administration Dextrose 12.5 gm 09/03/25 01:38 Dextrose 50% 25 Gm/50 Ml Syringe IV PUSH PRN PRN Hypoglycemia Protocol Donepezil HCl 10 mg 09/03/25 21:00 09/05/25 20:30 Donepezil Hcl 10 Mg Tablet PO 10 mg HS HANNAH Administration Doxycycline Hyclate 100 mg 09/06/25 21:00 Doxycycline Hyclate 100 Mg Tablet PO 09/08/25 09:01 Q12HR HANNAH Ezetimibe 10 mg 09/04/25 09:00 09/06/25 08:36 Ezetimibe 10 Mg Tablet PO 10 mg DAILY HANNAH Administration Glucose 15 gm 09/03/25 01:38 Glucose Oral Gel 15 Gm Of Glucse In 37.5 Gm Tube PO PRN PRN Hypoglycemia Protocol Hydralazine HCl 10 mg 09/03/25 10:54 09/06/25 05:42 Hydralazine Hcl 20 Mg/Ml Vial IV PUSH 10 mg Q8H PRN Administration Blood Pressure - High Hydralazine HCl 50 mg 09/03/25 17:00 09/06/25 11:59 Hydralazine Hcl 50 Mg Tablet PO 50 mg QID HANNAH Administration Dextrose 1,000 mls @ 100 mls/hr 09/03/25 01:38 Dextrose 5% 1,000 Ml IVPB PRN PRN Hypoglycemia Protocol Insulin Aspart 2 - 5 units 09/03/25 08:00 09/06/25 11:59 Insulin Aspart (*Bkc) 100 Units/Ml SUB-Q Not Given TIDWM HANNAH Protocol Insulin Aspart 1 - 2 units 09/03/25 21:00 09/05/25 21:57 Insulin Aspart (*Bkc) 100 Units/Ml SUB-Q Not Given HS HANNAH Protocol Lactobacillus Acidophilus 1 tablet 09/04/25 09:00 09/06/25 08:36 Acidophilus/Bulgaricus Chewable Tablet BY MOUTH 1 tablet DAILY HANNAH Administration Latanoprost 1 drop 09/03/25 18:00 09/05/25 17:15 Latanoprost 0.005% Op Soln 2.5 Ml Btl EACH EYE 1 drop DAILY@1800 HANNAH Administration Oxybutynin Chloride 10 mg 09/04/25 09:00 09/06/25 08:36 Oxybutynin Chloride Xl 5 Mg Tab.Er.24 PO 10 mg DAILY HANNAH Administration Pantoprazole Sodium 40 mg 09/03/25 21:00 09/06/25 08:36 Pantoprazole 40 Mg Tablet PO 40 mg Q12HR HANNAH Administration Senna/Docusate Sodium 1 tab 09/03/25 17:00 09/06/25 08:36 Senna/Docusate Sodium Tablet PO 1 tab BID HANNAH Administration Tamsulosin HCl 0.8 mg 09/04/25 09:00 09/06/25 08:36 Tamsulosin Hcl 0.4 Mg Capsule PO 0.8 mg DAILY HANNAH Administration Vitamin D 50 mcg 09/04/25 09:00 09/06/25 08:36 Cholecalciferol (Vitamin D3) 25 Mcg (1,000 Units) Tablet PO 50 mcg DAILY HANNAH Administration Radiology Results: ITS Impressions Head CT 09/02/25 19:36 Impression: 1.No acute intracranial abnormality. Chest X-Ray 09/02/25 19:44 Impression: CHF. Superimposed probable right lower lobe pneumonia Chest/Abdomen/Pelvis CT 09/03/25 08:04 IMPRESSION: 1. Small right pleural effusion with pleural thickening, likely an exudate. 2. Peripheral airspace opacities in right middle lobe and right lower lobe, consistent with rounded atelectasis. 3. Bilateral inguinal hernias containing fat. Head/Neck CTA 09/04/25 09:37 IMPRESSION: 1. Small amount of atherosclerotic plaque with 0% stenosis of the right and left carotid bulb relative to normal distal artery lumen diameter (NASCET criteria). 2. Moderate 60-70% stenosis at the left P1 segment. No other hemodynamically significant stenosis, thrombosis or aneurysm. 3. 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 4. Unchanged mild asymmetric enlargement of the left lateral ventricle resulting in a 9 mm midline shift at the ventricular septum. There is however no asymmetric effacement of the left-sided sulci or evident obstructing lesion in the region of the foramen of [place] to suggest hydronephrosis. Correlation with any prior outside imaging would be helpful to establish chronicity. No other acute intracranial process. 5. Age-related changes including mild diffuse volume loss and mild to moderate scattered white matter hypoattenuation consistent with chronic small vessel ischemic disease. 6. Mild emphysema with ground glass opacities in the visualized upper lungs most likely atelectasis due to expiratory phase of imaging with differential including less likely mild pulmonary edema or pneumonia. 7. Small right pleural effusion. 8. 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 Labs Labs: Laboratory Results - last 24 hr 09/05/25 09/05/25 09/06/25 17:09 20:23 04:58 WBC 8.6 RBC 4.75 Hgb 13.5 L Hct 41.7 L MCV 87.8 MCH 28.4 MCHC 32.4 RDW 14.5 Plt Count 186 MPV 11.1 H Immature Gran % (Auto) 0.4 Neut % (Auto) 71.2 Lymph % (Auto) 16.8 L Gregory % (Auto) 8.4 Eos % (Auto) 2.8 Baso % (Auto) 0.4 Lymph # (Auto) 1.44 Gregory # (Auto) 0.7 H Eos # (Auto) 0.2 Baso # (Auto) 0.0 Abs Immat Gran (auto) 0.03 Absolute Neuts (auto) 6.1 Absolute Nucleated RBC 0.000 Nucleated RBC % 0.0 Sodium 136 L Potassium 3.2 L Chloride 106 Carbon Dioxide 23 Anion Gap 7 BUN 22 H Creatinine 1.20 Estim Creat Clear Calc 61 Estimated GFR 59 Glucose 162 H POC Capillary Glucose 138 H 123 H Calcium 8.4 Total Bilirubin 0.4 AST 20 ALT 15 Alkaline Phosphatase 101 Total Protein 6.6 Albumin 3.3 L 09/06/25 09/06/25 07:44 11:31 WBC RBC Hgb Hct MCV MCH MCHC RDW Plt Count MPV Immature Gran % (Auto) Neut % (Auto) Lymph % (Auto) Gregory % (Auto) Eos % (Auto) Baso % (Auto) Lymph # (Auto) Gregory # (Auto) Eos # (Auto) Baso # (Auto) Abs Immat Gran (auto) Absolute Neuts (auto) Absolute Nucleated RBC Nucleated RBC % Sodium Potassium Chloride Carbon Dioxide Anion Gap BUN Creatinine Estim Creat Clear Calc Estimated GFR Glucose POC Capillary Glucose 143 H 123 H Calcium Total Bilirubin AST ALT Alkaline Phosphatase Total Protein Albumin Quality VTE Prophylaxis VTE prophylaxis: mechanical ordered and pharmacologic ordered -Patient's previous records reviewed on admission -ER notes reviewed in detail on admission -discussed all findings and current treatment plan with patient/Family/POA -Consultations reviewed for recommendations -Patient's disposition for safe discharge discussed with gearcase assembler -radiology imaging, EKG and test results I have personally reviewed and interpreted unless otherwise specified Dictation performed by [employer] direct speech recognition software, therefore senior software architect variants and typographical errors may occur. Hospitalist MIPS Advance Care Plan I have confirmed that the patient's Advanced Care Plan is present, code status is documented, or surrogate decision maker is listed in patient medical record.: Yes Medication Reconciliation I have utilized all available resources to obtain, update and review the patients current medications (includes all prescriptions, OTC, herbals, cannabis, and nutritional supplements).: Yes The patient is not eligible for med reconciliation; the patient is in a emergent medical situation where delaying treatment would jeopardize the patients health.: No
[2025-09-06] MEDS: POTASSIUM CHLORIDE 20 MEQ PACKET (FOR LIQUID) 40 MEQ PO (17:18)
[2025-09-06] MEDS: LATANOPROST 0.005% OP SOLN 2.5 ML BTL 1 DROP EACH EYE (17:18)
[2025-09-06] MEDS: DOXYCYCLINE HYCLATE 100 MG TABLET PO (20:51)
[2025-09-06] MEDS: DONEPEZIL HCL 10 MG TABLET PO (20:52)
[2025-09-07 05:32] LABS: Estimated CRCL calculation 66 ml/min; Estimated Glomerular Filt Rate > 60
[2025-09-07 05:35] VITALS: BP 118/55; PULSE 69; RESP 18; TEMP 36.6; O2SAT 99
[2025-09-07 08:00] VITALS: PULSE 60
[2025-09-07] MEDS: TAMSULOSIN HCL 0.4 MG CAPSULE 0.8 MG PO (08:31)
[2025-09-07] MEDS: oxyBUTYnin CHLORIDE XL 5 MG TAB.ER.24 10 MG PO (08:31)
[2025-09-07] MEDS: ACIDOPHILUS/BULGARICUS CHEWABLE TABLET 1 TABLET BY MOUTH (08:31)
[2025-09-07] MEDS: CHOLECALCIFEROL (VITAMIN D3) 25 MCG (1,000 UNITS) TABLET 50 MCG PO (08:31)
[2025-09-07] MEDS: SENNA/DOCUSATE SODIUM TABLET 1 TAB PO (08:31)
[2025-09-07] MEDS: CYANOCOBALAMIN 500 MCG TABLET PO (08:32)
[2025-09-07] MEDS: APIXABAN 5 MG TABLET PO (08:32)
[2025-09-07] MEDS: ASPIRIN 81 MG ENTERIC TABLET PO (08:32)
[2025-09-07] MEDS: DOXYCYCLINE HYCLATE 100 MG TABLET PO (08:32)
[2025-09-07] MEDS: EZETIMIBE 10 MG TABLET PO (08:32)
[2025-09-07] MEDS: PANTOPRAZOLE 40 MG TABLET PO (08:32)
[2025-09-07 09:05] LABS: Hematocrit 42.2 % (42.0-52.0); Hemoglobin 13.8 g/dL (14.0-18.0); Mean Corpuscular HGB Conc 32.7 g/dl (32-36); Mean Corpuscular Hemoglobin 29.1 pg (26-34); Mean Corpuscular Volume 88.8 fl (80-100); Platelet Count Result 189 k/mm3 (150-375); Red Blood Count 4.75 M/mm3 (4.6-6.20); White Blood Count 8.6 K/mm3 (4.5-10.0)
[2025-09-07 09:37] LABS: Alanine Aminotransferase 14 U/L (6-50); Albumin Level 3.3 g/dL (3.5-5.1); Alkaline Phosphatase 100 U/L (38-126); Anion Gap 5 mmol/L (4-12); Aspartate Amino Transferase 28 U/L (17-59); Bilirubin,Total 0.5 mg/dL (0.2-1.3); Blood Urea Nitrogen 20 mg/dL (9-20); Calcium 8.5 mg/dL (8.4-10.2); Carbon Dioxide 25 mmol/L (22-30); Chloride 106 mmol/L (98-107); Estimated CRCL calculation 64 ml/min; Estimated Glomerular Filt Rate > 60; Glucose 118 mg/dL (65-110); Potassium 3.6 mmol/L (3.4-5.0); Sodium 136 mmol/L (137-145); Total Protein 6.5 g/dL (6.3-8.2)
[2025-09-07 12:00] VITALS: PULSE 83
--- NOTE | 2025-09-07 12:07 | P.DS_ITS ---
DS: Admitting Diagnosis Discharge Date 09/07/2025 Admitting Diagnosis AMS/Dementia/TIA DS: Discharge Diagnosis Discharge Diagnosis (1) Dementia: Code(s): F03.90 - Unspecified dementia, unspecified severity, without behavioral disturbance, psychotic disturbance, mood disturbance, and anxiety Status: Acute (2) Pneumonia: Code(s): J18.9 - Pneumonia, unspecified organism Status: Acute (3) Hypokalemia: Code(s): E87.6 - Hypokalemia Status: Acute (4) DM type 2 (diabetes mellitus, type 2): Code(s): E11.9 - Type 2 diabetes mellitus without complications Status: Acute (5) Essential hypertension: Code(s): I10 - Essential (primary) hypertension Status: Acute (6) Paroxysmal A-fib: Code(s): I48.0 - Paroxysmal atrial fibrillation Status: Acute DS: Summary Hospital Course Reason for hospitalization: AMS/Dementia/TIA/Hypokalemia/PNA/Hypertension Hospital Course: Admission: 75-year-old male presenting to [facility] ER via EMS on 09/02/2025 found to be wandering, altered mental status. History is taken via the ER physician in chart review from the [place]. documentation reports PMH CAD, BPH, awaiting hell seeing improvement, diabetes mellitus, hype rlipidemia, bradycardia, onychomycosis, history of transluminal coronary angioplasty, permanent cardiac pacemaker, morbid obesity, history of polyp of colon, nephrolithiasis, cholelithiasis and cholecystitis without obstruction, dyspepsia, vitamin-D deficiency, low back pain, memory loss, depression, dementia, sinusitis, insomnia, anger, pneumonia, paroxysmal atrial fibrillation, UTI, aneurysm of thoracic aorta, Dupuytren's contracture of fingers. Patient's address on his identification card correlates with an apartment. He was apparently found wandering in the parking lot of [facility], reportedly has a car. EMS brought the patient [facility]. He was confused but we cannot elicit any complaints on comprehensive review of systems. Exhaustive attempts to reach out to family unsuccessful, [facility] because [facility] at capacity. A recent admission 2 weeks prior reports confusion, borderline low blood pressure, hy pokalemia, chronic right pleural effusion. At that time is EKG demonstrated sinus rhythm with occasional PACs, right bundle branch block, no acute ST elevation, QTC 497. A CT head was without any acute abnormalities, demonstrated volume loss and extensive chronic white small-vessel disease. Chest x-ray demonstrating right pleural effusion. Potassium 3.0. WBC slightly elevated at 11,300 thousand three hundred, he received hydralazine IV push for elevated blood pressure and afterwards had blood pressure 108/54. In the ED: 12.8, platelet 241, hemoglobin 15.7, VBG demonstrating pH 7.458, pCO2 40.3, serum creatinine 1.26, potassium 3.2, BNP 4400, urinalysis 2+ ketones and 3+ protein. MRSA in the nares negative, urine drug screen negative, serum alcohol undetectable, quad viral screen negative. CT brain without contrast, no acute abnormalities. C-spine to negative for acute findings. CT chest abdomen pelvis with Stat Rad read revealing right lung small pleural effusion with questionable a minimal thickening of the pleural, no loculations, masslike consolidation right middle lobe with mild swelling and adjacent vessels could represent round atelectasis versus infiltrates, right lower lobe consolidation with obliteration, possible mucus plugs? Hospital Course: Patient was then admitted to the medical unit for further evaluation acute altered mental status in evaluation for worsening dementia, metabolic encephalopathy secondary to infection and TIA. Neurology had been consulted recommended CTA which did show old infarcts with moderate stenosis of the LT P 1 and chronic small-vessel ischemic disease. Echo with normal biventricular size and systolic function of EF greater than 70%. Patient was started on treatment for right lower lobe pneumonia initially started on IV Rocephin and doxy transition to oral Augmentin and doxy which time he never required any supplemental oxygen. Patient with hypoglycemia reported history type 2 diabetes been on any current home medications A1c was 6.5 minute follow-up A1c in 3 months may need to start metformin. Leukocytosis continued to trend labs and vitals reviewed at time of discharge stable patient was also alert and oriented 2-3 was able to tell me the year date where he was and where he was going. Patient was seen and assessed by physical and occupational therapy and was agreed patient would benefit from rehab retirement facility plan to follow- up with Neurology outpatient for further evaluation of his dementia and decline in mental status. Status at Discharge Functional status at discharge: independent ambulation Overall status at discharge: patient is progressing back to baseline Time Spent with Patient Time attestation: Total time spent providing and/or coordinating discharge services: Time spent: Greater than 30 minutes Exam Const: General: comfortable and no acute distress Other: Pleasantly confused alert to self and place HENMT: Other: Extremely poor dentition, teeth covered in plaque, severe halitosis Eyes: Pupils: Equal, round and reactive pupils present EOM: EOMs intact bilaterally Neck: Neck: supple Resp: Effort & Inspection: normal respiratory effort Auscultation: clear to auscultation bilaterally Cardio: Rate: regular rate Rhythm: regular rhythm Heart sounds: no murmurs GI: Inspection: non-distended Auscultation: normal bowel sounds : General: Yes bladder normal to palpation Neuro: Cranial nerves: Yes Equal, round and reactive pupils present Motor exam (neuro): 5/5 motor strength present throughout Sensory Exam: normal sensation Other: Does not fully participate with neurologic exam. Extrem: General: normal to inspection and no edema Psych: Affect: normal affect DS: Data Data Completed and Pending Labs on day of discharge: Labs from last 24 hours 09/07/25 09/07/25 09/07/25 11:34 07:31 04:37 WBC RBC Hgb Hct MCV MCH MCHC RDW Plt Count MPV Sodium Potassium Chloride Carbon Dioxide Anion Gap BUN Creatinine Estim Creat Clear Calc Estimated GFR > 60 Glucose 118 H POC Capillary Glucose 182 H 146 H Calcium 8.5 Total Bilirubin 0.5 AST 28 ALT 14 Alkaline Phosphatase 100 Total Protein 6.5 Albumin 3.3 L 09/07/25 09/07/25 09/07/25 04:37 04:37 04:37 WBC 8.6 RBC 4.75 Hgb 13.8 L Hct 42.2 MCV 88.8 MCH 29.1 MCHC 32.7 RDW 14.6 H Plt Count 189 MPV 11.3 H Sodium 136 L Potassium 3.6 Chloride 106 Carbon Dioxide 25 Anion Gap 5 BUN 20 Creatinine 1.13 1.10 Estim Creat Clear Calc 64 66 Estimated GFR > 60 Glucose POC Capillary Glucose Calcium Total Bilirubin AST ALT Alkaline Phosphatase Total Protein Albumin 09/06/25 09/06/25 20:34 17:21 WBC RBC Hgb Hct MCV MCH MCHC RDW Plt Count MPV Sodium Potassium Chloride Carbon Dioxide Anion Gap BUN Creatinine Estim Creat Clear Calc Estimated GFR Glucose POC Capillary Glucose 127 H 151 H Calcium Total Bilirubin AST ALT Alkaline Phosphatase Total Protein Albumin Preliminary micro results at discharge 09/02/25 19:53 Blood Culture - Preliminary Blood 09/02/25 20:23 Blood Culture - Preliminary Blood Imaging Radiologist's impression: Radiology Results: ITS Impressions Head CT 09/02/25 19:36 Impression: 1.No acute intracranial abnormality. Chest X-Ray 09/02/25 19:44 Impression: CHF. Superimposed probable right lower lobe pneumonia Chest/Abdomen/Pelvis CT 09/03/25 08:04 IMPRESSION: 1. Small right pleural effusion with pleural thickening, likely an exudate. 2. Peripheral airspace opacities in right middle lobe and right lower lobe, consistent with rounded atelectasis. 3. Bilateral inguinal hernias containing fat. Head/Neck CTA 09/04/25 09:37 IMPRESSION: 1. Small amount of atherosclerotic plaque with 0% stenosis of the right and left carotid bulb relative to normal distal artery lumen diameter (NASCET criteria). 2. Moderate 60-70% stenosis at the left P1 segment. No other hemodynamically significant stenosis, thrombosis or aneurysm. 3. 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 4. Unchanged mild asymmetric enlargement of the left lateral ventricle resulting in a 9 mm midline shift at the ventricular septum. There is however no asymmetric effacement of the left-sided sulci or evident obstructing lesion in the region of the foramen of [place] to suggest hydronephrosis. Correlation with any prior outside imaging would be helpful to establish chronicity. No other acute intracranial process. 5. Age-related changes including mild diffuse volume loss and mild to moderate s cattered white matter hypoattenuation consistent with chronic small vessel ischemic disease. 6. Mild emphysema with ground glass opacities in the visualized upper lungs most likely atelectasis due to expiratory phase of imaging with differential including less likely mild pulmonary edema or pneumonia. 7. Small right pleural effusion. 8. 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 Discharge Plan Discharge Attending physician on discharge: Robe Dangelo Consulting providers: Juan Gibson; Jaison Velásquez; Tori Wadsworth Discharging Clinician: Tori Wadsworth Anticipated Discharge Date/Time: 09/07/25 12:11 Patient Disposition: SNF Activity: as tolerated Diet: heart healthy Discharge Instructions: 1). Dementia * Continue donepezil * follow-up with neurology outpatient 2). TIA * continue atorvastatin, ASA, and Eliquis * can follow up with Neurology outpatient 3). hypertension * resume home medications however I did add nifedipine 30 mg daily because she continued to have elevated blood pressures during her admission 4). Pneumonia * I have prescribed oral antibiotic therapy please take as indicated and complete even if feeling better How can you care for yourself at home? ? Keep track of any new symptoms or changes in your symptoms. ? Rest until you feel better. ? Be safe with medicines. Take your medicines exactly as prescribed. Call your doctor if you think you are having a problem with your medicine. ? Do not drive after taking a prescription pain medicine. ? Ensure to follow-up with primary care physician as indicated and provide updated medication list provided to you at discharge. When should you call for help? Call 911 anytime you think you may need emergency care. For example, call if: ? You passed out (lost consciousness). Call your doctor now or seek immediate medical care if: ? You have new symptoms like fever, difficulty breathing, Chest pain, vomiting, or rash. ? You have new or different pain. ? You are confused and are having trouble thinking clearly. ? Your symptoms are getting worse. Watch closely for changes in your health, and be sure to contact your doctor if: ? You do not get better as expected. Patient Instructions: Transient Ischemic Attack (DC), Dementia (GEN), Chronic Hypertension (DC), Community Acquired Pneumonia (DC), Hypertension (DC) Patient Language: Latvian Stand Alone Forms: General Discharge Information Follow-up/Referrals: Jaison Velásquez MD [Physician, Neurology] - Call for Appointment Juan Gibson MD [Physician, Family Practice] - 2 Weeks Discharge Medications: New amoxicillin-pot clavulanate 875-125 mg tablet 1 tablet PO Q12H Qty: 2 0RF doxycycline hyclate 100 mg capsule 100 mg PO DAILY Qty: 2 0RF nifedipine [Procardia XL] 30 mg Tablet Extended Release 24hr 30 mg PO QAM Qty: 30 0RF cyanocobalamin (vitamin B-12) [Vitamin B-12] 500 mcg Tablet 500 mcg PO QAM Qty: 30 0RF Continued apixaban 5 mg tablet 5 mg PO BID clonidine HCl 0.2 mg tablet 0.1 mg PO Q12H donepezil 10 mg tablet 10 mg PO HS ezetimibe 10 mg tablet 10 mg PO DAILY hydralazine 50 mg tablet 50 mg PO QID lisinopril 20 mg tablet 20 mg PO DAILY oxybutynin chloride 10 mg tablet extended release 24hr 10 mg PO DAILY pantoprazole 40 mg tablet,delayed release (DR/EC) 40 mg PO Q12H tamsulosin 0.4 mg capsule 0.8 mg PO Q24H aspirin 81 mg tablet 81 mg PO DAILY cholecalciferol (vitamin D3) 50 mcg (2,000 unit) capsule 50 mcg PO DAILY sennosides-docusate sodium 8.6-50 mg tablet 1 tab-cap PO BID Lactobacillus acidophilus 1 billion cell capsule 1,000 mmu cells PO DAILY latanoprost 0.005 % drops 1 drp EACH EYE DAILY Date of admission: 09/02/25 23:48 Primary Care Provider: PHYSICIAN,CARPORT ERECTOR Admitting Provider: Radha Lipscomb Attending physician on admission: Radha Lipscomb Condition: Stable Quality VTE Prophylaxis VTE prophylaxis: mechanical ordered and pharmacologic ordered -Patient's previous records reviewed on admission -ER notes reviewed in detail on admission -discussed all findings and current treatment plan with patient/Family/POA -Consultations reviewed for recommendations -Patient's disposition for safe discharge discussed with adult protective caseworker -radiology imaging, EKG and test results I have personally reviewed and interpreted unless otherwise specified Dictation performed by [employer] direct speech recognition software, therefore clinical haematologist variants and typographical errors may occur. Hospitalist MIPS Heart Failure (Exclusion) Patient has history of Heart Transplant or Left Ventricular Assistive Device?: No IF YES, STOP HERE Heart Failure (Qualifier) Patient has current or prior documentation of LVEF less than or equal to 40%, or mod/servere depressed LVSF?: No IF NO, STOP HERE
[2025-09-07 13:42] VITALS: BP 111/44; PULSE 90; RESP 16; TEMP 36.6; O2SAT 96
== END 2025-09-07 14:43 | DRG 193 ==
LOC: ANHED 23:18 → ANH2MED 09-03 00:49
PROVIDERS: Emergency Medicine; Nurse Practitioner Adult Health; Admitting Provider General Practice; Emergency Provider Emergency Medicine; Visit Provider Nurse Practitioner Family
DX: J18.9 Pneumonia, unspecified organism (principal); G93.41 Metabolic encephalopathy; I48.20 Chronic atrial fibrillation, unspecified; I10 Essential (primary) hypertension; I25.10 Atherosclerotic heart disease of native coronary artery without angina pectoris; I66.22 Occlusion and stenosis of left posterior cerebral artery; I71.40 Abdominal aortic aneurysm, without rupture, unspecified; E87.6 Hypokalemia; E11.9 Type 2 diabetes mellitus without complications; E55.9 Vitamin D deficiency, unspecified; E78.5 Hyperlipidemia, unspecified; N40.0 Benign prostatic hyperplasia without lower urinary tract symptoms; F03.90 Unspecified dementia, unspecified severity, without behavioral disturbance, psychotic disturbance, mood disturbance, and anxiety; F32.A Depression, unspecified; Z20.822 Contact with and (suspected) exposure to COVID-19; Z95.0 Presence of cardiac pacemaker; Z95.5 Presence of coronary angioplasty implant and graft; Z87.891 Personal history of nicotine dependence; Z79.82 Long term (current) use of aspirin; Z79.01 Long term (current) use of anticoagulants
CPT/HCPCS: 36415; 70450; 70496; 70498; 71045; 71260; 74177; 80048; 80053; 80143; 80179; 80202; 80307; 81001; 82077; 82565; 82607; 82746; 82803; 82948; 83036; 83605; 83690; 83735; 83880; 84145; 84443; 85025; 85027; 85610; 85730; 87040; 87449; 87637; 87641; 87899; 92610; 93005; 95816; 96360; 96375; 97161; 97166; 99285; A9270; C8929; J0360; J0696; J3373; J3480; J7030; Q9957; Q9967